=== PATIENT | female | born 1990 | race Caucasian/White ===

== ENCOUNTER 2018-03-06 21:16 | Emergency (ER) | payer MEDICAID, SELFPAY ==
[2018-03-06 21:20] VITALS: BP 107/75; PULSE 107; RESP 18; TEMP 36.4; O2SAT 99
--- NOTE | 2018-03-06 21:33 | DI.RPTCT_ITS ---
SYMPTOM/DIAGNOSIS: PLEURITIC CHEST PAIN, UPPER ABDOMINAL PAIN CHEST FOR PE: CT angiography was performed with multi slice acquisition and multi planar and 3D reconstruction. The study was carried out with intravenous injection of 100 cc Omnipaque 350. Motion artifact limits the study and the results are insufficient for definitive exclusion of pulmonary emboli beyond the first and second pulmonary arterial branches. There is no evidence of a saddle embolus. There is no evidence of central lobar occlusive emboli. The mental emboli could not be entirely excluded. The aortopulmonary arteries are of normal caliber. There is no evidence of an aortic aneurysm or dissection. Heterogenous attenuation of the pulmonary parenchyma is consistent with air trapping from underlying small airway disease. There is no evidence of focal pulmonary consolidation. There is no evidence of pulmonary parenchymal inflammatory change. There is no evidence of a pulmonary mass. There is no evidence of a pneumothorax or pleural effusion. The cardiac structures are normal. The mediastinum is intact. No acute bony abnormality is seen. There are no soft tissue masses or fluid collections. Bilateral soft tissue nipple piercing is evident. There is mild hilar adenopathy. There is mild right hilar adenopathy present. SUMMARY: Heterogeneous attenuation of the pulmonary parenchyma consistent with air trapping for underlying small vessel disease is noted. There is mild left hilar adenopathy. Motion artifact limits the study resulting in insufficient definitive exclusion of pulmonary embolic disease beyond the 1st and 2nd aortopulmonary arteries. No saddle embolus is identified. There is no evidence of central lobar occlusive emboli. CT ABDOMEN AND PELVIS: The study was carried out with intravenous administration of 100 cc Omnipaque 350. There is no evidence of focal pulmonary consolidation in the lung bases. There is no evidence of a pneumothorax or pleural effusion. The cardiac structures are intact. There is diffuse decrease in hepatic parenchymal density consistent with fatty infiltration. The liver is enlarged with a liver span of up to 20 cm. The spleen is also enlarged. There is no evidence of a focal liver lesion. There is no evidence of intrahepatic or extrahepatic biliary ductal dilatation. The gallbladder is contracted but is otherwise unremarkable. There is no cholelithiasis or wall thickening or pericholecystic fluid to suggest cholecystitis. The pancreas is normal. Spleen is enlarged. The adrenal glands are normal. The kidneys are normal. There is no evidence of bowel obstruction. There is no evidence of diverticulitis A normal appearing appendix is identified. The bladder is normal. The reproductive organs as visualized are normal. A left ovarian cyst measures 1.9 cm. There is a right ovarian cyst measuring 1.6 cm There is no evidence of free air or free fluid in the intraperitoneal space. There is no evidence of a soft tissue mass or fluid collection. No acute bony abnormalities seen. The soft tissues are unremarkable. There is no evidence of an aortic aneurysm. There is no evidence of lymphadenopathy. SUMMARY: No acute abnormality is noted in the abdomen and pelvis. An enlarged fatty liver is demonstrated.
--- NOTE | 2018-03-06 21:34 | ED.GENADUL ---
Disposition Clinical Impression: Abdominal pain, Chest pain Disposition: HOME Condition: Stable Instructions: Abdominal Pain (ED), Chest Pain (ED) Additional Instructions: your lab work and imaging did not show any life threatening cause for your pain. You were found to have high blood sugar as you haven't been taking medications that you are supposed to be taking. IT is important you take your prescribed medications follow up with your primary care provider within a week. Medical Decision Making - Lab Data Results reviewed for labs ordered during visit: Yes - EKG Data -: EKG Interpreted by Me EKG shows normal: sinus rhythm, axis, intervals, QRS complexes, ST-T waves Rate: normal - Radiology Data Radiology results: report reviewed, image reviewed - Medical Decision Making Pt here with pleuritic chest and back pain and upper abdominal pain. Could be fibromyalgia but feel life threatening processes should be evluated for. She is wells moderate given PE could be number one diagnosis, will obtain CTA and also obtain ct abd/pelvis to eval for sbo, cholecystitis among other pathology. She has no pain with exertion, no n/v, no diaphoresis and heart score is 1 based on risk factors, will send troponin and obtain ecg, if negative do not feel further workup indicated. labs thus far unremarkable, awaiting chemistries and imaging. imaging abd/pelvis shows n oacute pathology and cta chest also shows no acute pathology, though can't exclude distal PE due to motion artifact. Her HR is now in the 80's without hypoxia so less likely PE. I feel she is stable for outpatient management. I suspect either muscle strain vs fibromyalgia. She was educated on importance of controlling her DM, her glucose here is 487 and she hasn't been using her insulin for 2 days, educated on risks of not controlling it including and disability that would be permanent. She declined referral to catholic priest - Differential Diagnosis PE, pancreatitis, cholecystitis, hepatitis, pna, ptx History of Present Illness - General Chief complaint: Chest/Rib Stated complaint: UNKNOWN Time Seen by Provider: 03/06/18 21:18 Source: patient Mode of arrival: ambulatory Limitations: no limitations - History of Present Illness Initial comments: 28 yo female with hx of DM, fibromyalgia, who comes in with cc of pleuritic right sided chest pain and back pain and upper abdominal pain starting this morning. Denies having this pain in the past. Denies fevers or cough. she has upper abdominal pain in luq and ruq with no lower abdominal pain and negative allen's sign MD Complaint: chest and abd pain Onset/Timin -: days(s) Location: chest, abdomen Radiation: non-radiation Severity scale (1-10): 7 Quality: stabbing Consistency: constant Improves with: none Worsens with: other (deep breaths) Associated Symptoms: denies other symptoms Treatments Prior to Arrival: none - Related Data Metformin HCl [Glucophage Xr] 750 mg PO BID tab-cap 02/04/15 Ondansetron HCl 4 mg PO TID PRN 02/04/15 Insulin Glargine,Hum.rec.anlog [Lantus Solostar] 50 unit SC HS 08/23/15 Lidocaine/Prilocaine [Emla Cream] 30 gm TP Q4H PRN #6 tube 11/02/15 Cetirizine HCl [Zyrtec] 10 mg PO DAILY 01/23/18 Insulin Detemir [Levemir] 1 unit SC DAILY 01/23/18 TraZODone [Desyrel] 50 mg PO DAILY 01/23/18 DULoxetine [Cymbalta] 60 mg PO DAILY 03/06/18 Allergies Allergy/AdvReac Type Severity Reaction Status Date / Time latex Allergy Mild Skin Rash Unverified 03/06/18 21:24 Penicillins Allergy Unknown as child Unverified 03/06/18 21:24 clindamycin AdvReac nausea/itch Unverified 03/06/18 21:24 ing Review of Systems Constitutional: denies: chills, fever Respiratory: shortness of breath Cardiovascular: chest pain Gastrointestinal: abdominal pain. denies: nausea, vomiting Musculoskeletal: back pain Skin: denies: rash Neurological: denies: headache Comment: All other systems reviewed and negative Past Medical History - Past Medical History Medical history: diabetes Fibromyalgia Surgical history: bilateral tubal ligation, other (LEEP, bilateral eye surgery) - Social History Smoking status: current everyday smoker Alcohol use: occasionally Drug use: none General Exam - General Limitations: no limitations General appearance: alert, in no apparent distress - Head Head exam: Present: atraumatic - Eye Eye exam: Present: normal apperance - ENT ENT exam: Present: mucous membranes moist - Neck Neck exam: Present: normal inspection - Respiratory Respiratory exam: Present: normal lung sounds bilaterally. Absent: respiratory distress - Cardiovascular Cardiovascular Exam: Present: normal rhythm, tachycardia, normal heart sounds - GI/Abdominal GI/Abdominal exam: Present: soft, tenderness. Absent: distended, rebound - Extremities Exam Extremities exam: Present: normal inspection. Absent: pedal edema, calf tenderness - Back Exam Back exam: Absent: CVA tenderness (R), CVA tenderness (L) - Neurological Exam Neurological exam: Present: alert, oriented X3, normal gait - Psychiatric Psychiatric exam: Present: anxious - Skin Skin exam: Present: warm Course Vital Signs - 24 hr 03/06/ 21:20 Temperature 97.5 F L Pulse 107 H Respiratory 18 Rate Blood Pressure 107/75 Pulse Oximetry 99
[2018-03-06] MEDS: Normal Saline 1,000 ML 1000 ML IV (21:49)
[2018-03-06] MEDS: Ketorolac 30 MG/ML VIAL 15 MG IVP (21:49)
[2018-03-06 21:50] LABS: Abs Immature Grans 0.01 k/cumm (0.0-0.09); Absolute Basophil Count 0.02 k/cumm (0.0-0.2); Absolute Eosinophil Count 0.18 k/cumm (0.0-0.7); Absolute Lymphocyte Count 2.95 k/cumm (1.2-3.4); Absolute Monocyte Count 0.34 k/cumm (0.11-0.7); Absolute Neutrophil Count 5.53 k/cumm (1.2-6.7); Basophils % 0.2; HCT 41.2 % (36.0-46.0); HGB 15.2 g/dL (12.0-15.5); Immature Grans % 0.1; Lymphocytes % 32.7; Mean Corp. HGB Concentration 36.9 g/dL (32.0-36.0); Mean Corpuscular Hemoglobin 29.5 pg (27.0-33.0); Mean Corpuscular Volume 79.8 fL (80-95); Mean Platelet Volume 9.6 fL (8.0-11.0); Monocytes % 3.8; Neutrophils % 61.2; Platelet Count 165 x1000/uL (130-400); RBC 5.16 m/cumm (4.00-5.20); RBC Distribution Width 12.4 % (11.7-14.6); White Blood Cell Count 9.03 k/cumm (4.4-10.8)
[2018-03-06 22:09] LABS: ALT 23 U/L (12-78); Albumin 3.6 g/dL (3.4-5.0); Alkaline Phosphatase 77 U/L (46-116); BUN 16 mg/dL (7-18); Bilirubin, Total 0.2 mg/dL (0.2-1.0); CREATININE 0.94 mg/dL (0.55-1.02); Calcium 8.9 mg/dL (8.5-10.1); Chloride 95 mmol/L (98-107); Glucose 487 mg/dL (70-100); Lipase 163 U/L (73-393); Magnesium 1.9 mg/dL (1.8-2.4); Potassium 4.2 mmol/L (3.5-5.1); Sodium 131 mmol/L (136-145); Total Protein 7.2 g/dL (6.4-8.2)
[2018-03-06 22:12] LABS: Troponin I < 0.02 ng/mL (0.00-0.06)
[2018-03-06] MEDS: Omnipaque 350 MG/ML 100 ML BTL IJ (22:16)
[2018-03-06 22:25] LABS: AST < 5 U/L (15-37)
--- NOTE | 2018-03-06 22:47 | DI.VRAD_ITS ---
EXAM: CT Abdomen and Pelvis With Intravenous Contrast CLINICAL HISTORY: 28 years old, female; Pain; Abdominal pain; Other: Upper; Chest pain; Other: Pleuritic TECHNIQUE: Axial computed tomography images of the abdomen and pelvis with intravenous contrast. All CT scans at this facility use at least one of these dose optimization techniques: automated exposure control; mA and/or kV adjustment per patient size (includes targeted exams where dose is matched to clinical indication); or iterative reconstruction. Coronal and sagittal reformatted images were created and reviewed. CONTRAST: 100 mL of Omnipaque 350 administered intravenously. COMPARISON: No relevant prior studies available. FINDINGS: Lung bases: Please see CT of the chest and lungs. The lungs are normal. There is no evidence of focal pulmonary consolidation. Pleural space: There is no evidence of pneumothorax. There are no pleural effusions present. Heart: The cardiac structures are normal. ABDOMEN: Liver: There is a diffuse decrease in hepatic parenchymal density, consistent with mild fatty infiltration. The liver is enlarged with a liver span of approximately 20 cm. The spleen is enlarged There are no focal liver lesions present. There is no evidence of intrahepatic or extrahepatic biliary ductal dilation. Gallbladder and bile ducts: The gallbladder is contracted but otherwise normal. There is no cholelitiasis, wall thickening or pericholecystic fluid to suggest cholecystitis. Pancreas: The pancreas is normal. Spleen: See above. Adrenals: The adrenal glands are normal. Kidneys and ureters: The kidneys are normal. Stomach and bowel: There is no evidence of intestinal obstruction. No diverticulitis is present. PELVIS: Appendix: A normal appendix is identified. There is no evidence of distention or periappendiceal inflammation to suggest appendicitis. Bladder: The bladder is normal. Reproductive: The uterus is normal. There is a left ovarian cyst measuring 19 mm. There is a right ovarian cyst measuring 16 mm. No followup necessary. The ovaries are otherwise normal. ABDOMEN and PELVIS: Intraperitoneal space: There is no free intraperitoneal air. There is no evidence of free intraperitoneal or pelvic fluid. There are no soft tissue masses or fluid collections. Bones/joints: The skeletal structures show no evidence of fracture or other acute processes. Soft tissues: The extraperitoneal soft tissues show no evidence of fluid collections, masses or inflammation. Vasculature: The aorta is normal without evidence of significant atherosclerosis or aneurysmal disease. The peripheral arterial vascular system visualized is unremarkable. The portal venous system visualized is unremarkable. The venous system visualized is unremarkable. Lymph nodes: There is no evidence of lymphadenopathy. IMPRESSION: No acute process identified within the abdomen. Hepatic steatosis with hepatosplenomegaly EXAM: CT Angiography Chest With Intravenous Contrast CLINICAL HISTORY: 28 years old, female; Pain; Abdominal pain; Other: Upper; Chest pain; Other: Pleuritic TECHNIQUE: Axial computed tomographic angiography images of the chest with intravenous contrast using pulmonary embolism protocol. All CT scans at this facility use at least one of these dose optimization techniques: automated exposure control; mA and/or kV adjustment per patient size (includes targeted exams where dose is matched to clinical indication); or iterative reconstruction. MIP reconstructed images were created and reviewed. Coronal and sagittal reformatted images were created and reviewed. CONTRAST: 100 mL of Omnipaque 350 administered intravenously. 100 mL of Omnipaque 350 administered intravenously. COMPARISON: US - PELVIS TRANSVAG 2012-07-15 17:39 FINDINGS: Artifacts: Motion artifact limits evaluation the study. Pulmonary arteries: Motion artifact limits this study and the results are insufficient for definitive exclusion of peripheral pulmonary emboli beyond the first and second order pulmonary arterial branches. No central or saddle emboli noted. No evidence of central lobar occlusive emboli. Segmental emboli cannot be ruled out. The pulmonary arteries are normal in caliber. Aorta: The aorta great vessels are normal without evidence of aneurysmal dilatation, dissection or occlusive disease. Lungs: There is heterogeneous attenuation of the pulmonary parenchyma, consistent with air trapping from underlying small airways disease. There is no evidence of focal pulmonary consolidation. No evidence of pulmonary parenchymal inflammatory changes. There is no evidence of pulmonary masses. Pleural space: There is no evidence of pneumothorax. There are no pleural effusions present. Heart: The cardiac structures are normal. Mediastinum: The mediastinal structures are normal. Bones/joints: The spine, sternum, ribs, and pectoral girdles show no evidence of acute abnormality. Soft tissues: Bilateral soft tissue nipple piercings present. There are no soft tissue masses or fluid collections. Lymph nodes: There is mild left hilar adenopathy. There is mild right hilar adenopathy present. Other findings: Please see CT of the abdomen. IMPRESSION: 1. There is heterogeneous attenuation of the pulmonary parenchyma, consistent with air trapping from underlying small airways disease. 2. There is mild left hilar adenopathy. There is mild right hilar adenopathy present. 3. Motion artifact limits this study and the results are insufficient for definitive exclusion of peripheral pulmonary emboli beyond the first and second order pulmonary arterial branches. No central or saddle emboli noted. No evidence of central lobar occlusive emboli. Segmental emboli cannot be ruled out. Dictated and Authenticated by: Hugh Griffin MD. Ordering:BELL ALONSO MD
[2018-03-06 23:18] LABS: INR 0.9 (1.0-3.5); PTT Activated 21.3 sec (21.0-31.4); Prothrombin Time 8.8 sec (9.3-10.8)
== END 2018-03-06 23:00 | disposition home or self-care (01) ==
PROVIDERS: Emergency Provider Emergency Medicine; PCP Family Medicine
DX: R10.12 Left upper quadrant pain (principal); R07.81 Pleurodynia; E11.65 Type 2 diabetes mellitus with hyperglycemia; T38.3X6A Underdosing of insulin and oral hypoglycemic [antidiabetic] drugs, initial encounter; Z79.4 Long term (current) use of insulin
CPT/HCPCS: 36415; 71275; 74177; 80053; 83690; 93005; 96361; 96374; 99285; 83735; 84484; 85025; 85610; 85730; 93010; 99284; J1885; J3490

== ENCOUNTER 2018-05-03 13:33 | Outpatient (REF) | payer MEDICAID, SELFPAY ==
--- NOTE | 2018-05-03 10:45 | PAPFT_PTH ---
PATIENT: Tatiana Meek LOC: [facility] U#:[id number] AGE/SX: 28/F ROOM: RE05/03/[address]: Kerry Vo : 1990 BED: DIS: 05/03/2018 SPEC #: [id number] RECD: 05/06/18 13:15 STATUS: NICOLE REJenni #: [id number] JAMEEL: 05/03/18 10:[address]: Kerry Vo DEPT: [facility] Cytology RECD BY: Rashmi Nation Tissues: 1 - CX/ENDOCX FOR PAP SMEARS Procedures: PAP THIN PREP/[facility] Screening Comments: [id number] (CHLAMYDIA/GC)
[2018-05-07 12:40] LABS: Chlamydia Result Negative; GC Result Negative; Specimen Description SEE COMMENTS
== END 2018-05-03 13:53 ==
LOC: NCHCN 13:33
PROVIDERS: PCP Family Medicine; Visit Provider Family Medicine
DX: Z11.3 Encounter for screening for infections with a predominantly sexual mode of transmission (principal); Z12.4 Encounter for screening for malignant neoplasm of cervix; Z00.00 Encounter for general adult medical examination without abnormal findings
CPT/HCPCS: 87491; 87591; 88142

== ENCOUNTER 2018-05-26 11:16 | Emergency (ER) | payer MEDICAID, SELFPAY ==
[2018-05-26 11:32] VITALS: BP 128/81; PULSE 106; RESP 16; TEMP 36.7; O2SAT 98
--- NOTE | 2018-05-26 11:59 | DI.RAD_ITS ---
SYMPTOMS/DIAGNOSIS: COUGH AND WHEEZING FOR 5 WEEKS CHEST X-RAY, FRONTAL AND LATERAL VIEWS: Comparison is 07/10/12. The heart is normal in size. The lungs are clear. The mediastinal structures and pleura appear intact. IMPRESSION: Normal chest.
--- NOTE | 2018-05-26 12:00 | W.ED.GENAD ---
Discharge Plan Disposition Patient Disposition: HOME Condition: Good Discharge Details Chief Complaint: RespSymp Clinical Impression: URI (upper respiratory infection) Primary Care Provider: Kerry Vo ED Provider: Sonny Guaman Home Meds and New Rx's Prescriptions: New prednisone 20 mg tablet 40 mg PO DAILY Qty: 14 RF: 0 No Action ondansetron HCl 4 MG tablet 4 mg PO TID PRNRF: 0 metformin [Glucophage XR] 500 MG tablet extended release 24 hr 750 mg PO BID RF: 0 insulin glargine [Lantus Solostar U-100 Insulin] 100 UNIT/1 ML insulin pen 50 unit Sub-Q HS RF: 0 lidocaine-prilocaine [Emla] 30 GM cream 30 gm Topical Q4H PRN Qty: 6 RF: 5 trazodone 50 MG tablet 50 mg PO DAILY RF: 0 insulin detemir U-100 [Levemir U-100 Insulin] 100 UNIT/ML solution 1 unit Sub-Q DAILY RF: 0 cetirizine [Zyrtec] 10 MG capsule 10 mg PO DAILY RF: 0 duloxetine [Cymbalta] 60 MG capsule,delayed release(DR/EC) 60 mg PO DAILY RF: 0 Discharge Instructions Instructions: Upper Respiratory Infection (ED) Stand Alone Forms: Work Release Referrals: Kerry Vo MD [Primary Care Provider] - Return if symptoms worsen Discharge Data Discharge Date/Time-TO BE ENTERED AT DEPARTURE: 05/26/18 13:09 Medical Decision Making Plan to evaluate with chest x-ray. Apprised of x-ray impression. Discussed virus versus bacterial infection. At this point she looks well and exam is basically normal. Antibiotics are not warranted at this time. I will prescribe prednisone for the wheezing and advised to take time off from work to rest. Work note provided. Advised to f/u with pcp or return to ED if symptoms worsen. Imaging Data Radiologic Study: Imaging: X-Ray My impression: No acute pathology Radiologist's impression: V-Rad: No acute findings. HPI General Mode of arrival: ambulatory. Date/Time Provider Initiated Documentation: 05/26/18 11:59. Limitations to Documentation: no limitations. Information obtained by: patient. History of Present Illness 28 year old F presents to the emergency department with the chief complaint of URI causing Sinusitis, HPI Narrative: 28 y/o female here with c/o productive cough, wheezing, sore throat, chills, MCALLISTER and sinus pressure for five weeks. The symptoms have waxed and waned for five weeks. She does not currently does not c/o sore throat or productive cough. Cough is now dry. She smokes. All of her family is sick with similar illness. Last night her BF was diagnosed with PNA. She tells the nurse she has not taken her insulin do to financial reasons. Related Data Home Medications Medication Instructions Recorded Confirmed metformin [Glucophage XR] 750 mg PO BID tab-cap 02/04/15 05/26/18 ondansetron HCl 4 mg PO TID PRN 02/04/15 05/26/18 insulin glargine [Lantus Solostar 50 unit SUB-Q HS 08/23/15 05/26/18 U-100 Insulin] lidocaine-prilocaine [Emla] 30 gm TOPICAL Q4H PRN #6 tube 11/02/15 cetirizine [Zyrtec] 10 mg PO DAILY 01/23/18 05/26/18 insulin detemir U-100 [Levemir 1 unit SUB-Q DAILY 01/23/18 05/26/18 U-100 Insulin] trazodone 50 mg PO DAILY 01/23/18 05/26/18 duloxetine [Cymbalta] 60 mg PO DAILY 03/06/18 05/26/18 prednisone 40 mg PO DAILY #14 tab 05/26/18 Previous Rx's Medication Instructions Recorded prednisone 40 mg PO DAILY #14 tab 05/26/18 Allergies Allergy/AdvReac Type Severity Reaction Status Date / Time latex Allergy Mild Skin Rash Unverified 05/26/18 11:37 Penicillins Allergy Unknown as child Unverified 05/26/18 11:37 clindamycin AdvReac nausea/itch Unverified 05/26/18 11:37 ing General Stated Complaint: RespSymp GHULAM: 3 Review of Systems Constitutional Reports chills and Reports headache(s) Eyes Reports itchy eyes ENT Reports otalgia, Reports headache(s), Reports nasal discharge, Reports sinus pressure and Reports sore throat Cardiovascular Reports system reviewed and no additional complaints, except as docu Respiratory Reports chest congestion and Reports wheezing Gastrointestinal Reports system reviewed and no additional complaints, except as docu Genitourinary Reports system reviewed and no additional complaints, except as docu Integumentary/Breasts Reports system reviewed and no additional complaints, except as docu Neurologic Reports headache(s) Allergic/Immunologic Reports itchy eyes and Reports wheezing [facility] Social History Smoking/Tobacco Use Status: Current every day Exam Const General: cooperative, no acute distress, well developed and well groomed Nutritional Appearance: average body habitus Orientation: alert and oriented x3 HENMT Head: normal to inspection Ears: hearing grossly normal bilaterally, external ears normal and TM's normal bilaterally General nose exam: external nose normal and nasal mucous membranes and turbinates normal Face and sinus: normal facial exam Mouth: oral mucosae normal, lip normal, tongue normal, oropharynx normal and moist mucous membranes Teeth and gingiva: dentition normal Throat: posterior oropharynx normal Eyes General: appearance normal, both eyes and all related structures Neck Neck: normal visual inspection, full ROM and no lymphadenopathy Resp Effort & Inspection: normal respiratory effort and no cough Auscultation: clear to auscultation bilaterally Cardio Rate: regular rate Rhythm: regular rhythm Heart Sounds: S1 normal and S2 normal Skin General skin exam: no rashes or lesions noted Neuro General: alert, awake and oriented x3 Gait: normal gait Extrem General: normal to inspection, full ROM and normal capillary refill Psych Appearance: grossly normal and well kempt Mood: congruent mood Affect: normal affect Attitude: cooperative Thought Process: normal Thought Content: normal Course Vital Signs Temperature 36.7 C 05/26/18 11:32 Pulse 106 H 05/26/18 11:32 Respiratory Rate 16 05/26/18 11:32 Blood Pressure 128/81 05/26/18 11:32 Pulse Oximetry 98 05/26/18 11:32 Temperature 36.7 C 05/26/18 11:32 Temperature Source Temporal Artery Scan 05/26/18 11:32 Pulse 106 H 05/26/18 11:32 Respiratory Rate 16 05/26/18 11:32 Respiratory Effort Non-Labored 05/26/18 11:44 Respiratory Depth Normal 05/26/18 11:44 Blood Pressure 128/81 05/26/18 11:32 Blood Pressure Position Sitting 05/26/18 11:32 Pulse Oximetry 98 05/26/18 11:32 Oxygen Delivery Method Room Air 05/26/18 11:32 Oxygen Flow Rate 0 05/26/18 11:32 Pain Level 7 05/26/18 11:32
--- NOTE | 2018-05-26 12:46 | DI.VRAD_ITS ---
EXAM: XR Chest, 2 Views EXAM DATE/TIME: 05/26/2018 12:00 PM CLINICAL HISTORY: 28 years old, female; Signs and symptoms; Cough and wheezing; Patient HX: Coughing and wheezing for 5 weeks TECHNIQUE: XR of the chest, 2 views. COMPARISON: CR ABD FLAT UPRIGHT PA CHEST 07/10/2012 6:02 PM FINDINGS: Lungs: Unremarkable. No consolidation. Pleural space: Unremarkable. No pleural effusion. No pneumothorax. Heart/Mediastinum: Unremarkable. No cardiomegaly. Bones/joints: Unremarkable. IMPRESSION: No acute findings. Dictated and Authenticated by: Christy Cortés MD. Ordering:ZOILA ALONSO MD
== END 2018-05-26 13:09 | disposition home or self-care (01) ==
LOC: ER 13:11
PROVIDERS: Emergency Provider Nurse Practitioner Family; PCP Family Medicine
DX: J06.9 Acute upper respiratory infection, unspecified (principal); F17.210 Nicotine dependence, cigarettes, uncomplicated
CPT/HCPCS: 99283; 71046

== ENCOUNTER 2018-07-26 03:10 | Emergency (ER) | payer MEDICAID, SELFPAY ==
[2018-07-26 03:14] VITALS: BP 134/87; PULSE 114; RESP 20; TEMP 36.4; O2SAT 97
[2018-07-26 03:19] VITALS: RESP 18
--- NOTE | 2018-07-26 03:29 | W.ED.GENAD ---
Discharge Plan Disposition Patient Disposition: AGAINST MEDICAL ADVICE Condition: Stable Discharge Details Chief Complaint: GenMedical Clinical Impression: Rhinosinusitis, Uncontrolled diabetes mellitus Primary Care Provider: Kerry Vo ED Provider: Rohit Loza [place] Meds and New Rx's Prescriptions: New Flonase Sensimist 27.5 mcg/actuation spray,suspension 2 spray TREMAYNE DAILY Qty: 5.9 RF: 0 Discharge Instructions Additional Instructions: You really should consider treating your diabetes and taking medications to control your sugars. It is very high this morning. You did not want treatment for the diabetes and needed to leave in order to get your daughter to an appointment. Please make appointment to follow up with your doctor and discuss other treatment options. We will give you a prescription for steroid nose drops to see if this will help with your sinus pain/pressure that you came in for. Return to ED if you have fever, vomiting or want to evaluate/treat you elevated sugar. Referrals: Kerry Vo MD [Primary Care Provider] - Medical Decision Making Patient presents stating she only wants something to help with her nasal/facial pain. She has discontinued all of her other medications. She has not taken anything for diabetes for over a month. Blood sugar here is greater than 500. She declines workup or treatment for this. She does not want Tylenol for pain. She does not like taking the medications. She states insulin demarco and that none of the fibromyalgia medications help. She reports that she does have an appointment coming up with primary care. She understands the risk of not treating diabetes appropriately. She states that is not why she came in [facility]. She will not take medications for her diabetes. She will take the steroid nose drops to see if that helps. She does have capacity and the ability to refuse treatment. She is signed out AMA. HPI General Mode of arrival: ambulatory. Date/Time Provider Initiated Documentation: 07/26/18 03:24. Limitations to Documentation: no limitations. Information obtained by: patient. HPI Narrative: Patient presents to ED with complaints of facial pain and nasal congestion with postnasal drip. She reports that she has had this for some time now. On further questioning she states though not that long of a time. She was seen here at the end of April with URI symptoms and placed on prednisone. She never followed up with primary care. In fact she reported to nursing that she has actually stopped taking any medications. She reports having fibromyalgia and pain all over. She reports having occasional bloody discharge from her nose. She has facial pain. She denies having cough or fever. She has no difficulty breathing. She has not taken Tylenol or Motrin. She has difficulty sleeping because of the nasal congestion. Related Data Home Medications Medication Instructions Recorded Confirmed fluticasone furoate [Flonase 2 spray TREMAYNE DAILY #5.9 ml 07/26/18 Sensimist] Previous Rx's Medication Instructions Recorded fluticasone furoate [Flonase 2 spray TREMAYNE DAILY #5.9 ml 07/26/18 Sensimist] Allergies Allergy/AdvReac Type Severity Reaction Status Date / Time latex Allergy Mild Skin Rash Unverified 07/26/18 03:18 Penicillins Allergy Unknown as child Unverified 07/26/18 03:18 clindamycin AdvReac nausea/itch Unverified 07/26/18 03:18 ing General Stated Complaint: GenMedical GHULAM: 4 Review of Systems Constitutional Denies chills, Denies fever(s) and Denies headache(s) ENT Denies otalgia, Reports facial pain, Denies headache(s), Reports nasal congestion, Reports nasal discharge, Reports sinus pain, Reports sinus pressure and Denies sore throat Cardiovascular Denies chest pain, Denies edema and Denies dyspnea Respiratory Denies cough and Denies dyspnea Musculoskeletal Reports back pain, Reports myalgias and Denies numbness Neurologic Denies confusion, Denies headache(s), Denies focal weakness and Denies numbness Psychiatric Denies confusion [facility] Medical History Diabetes mellitus (Chronic) Fibromyalgia (Chronic) Surgical History S/P tubal ligation (Inactive) Social History Smoking/Tobacco Use Status: Current every day Exam Const General: cooperative and comfortable Orientation: alert and oriented x3 HENMT Head: normocephalic and atraumatic Ears: external ears normal and TM's normal bilaterally General nose exam: external nose normal and no nasal discharge Face and sinus: normal facial exam, sinuses nontender and no erythema Mouth: oropharynx normal Throat: posterior oropharynx abnormal Eyes Conjunctivae: conjunctivae normal Pupils: PERRL EOM: EOM intact bilaterally Neck Neck: full ROM, trachea midline and supple Lymphatic: no lymphadenopathy noted Resp Effort & Inspection: normal respiratory effort Auscultation: clear to auscultation bilaterally Cardio Rate: regular rate Rhythm: regular rhythm Heart Sounds: S1 normal and S2 normal Neuro General: alert, oriented x3, no focal motor deficits and CN's II-XI intact bilaterally Course Vital Signs Temperature 97.5 F L 07/26/18 03:14 Pulse 114 H 07/26/18 03:14 Respiratory Rate 20 07/26/18 03:14 Blood Pressure 134/87 07/26/18 03:14 Pulse Oximetry 97 07/26/18 03:14 Temperature 97.5 F L 07/26/18 03:14 Temperature Source Temporal Artery Scan 07/26/18 03:14 Pulse 114 H 07/26/18 03:14 Respiratory Rate 18 07/26/18 03:19 Respiratory Effort Non-Labored 07/26/18 03:14 Blood Pressure 134/87 07/26/18 03:14 Blood Pressure Position Sitting 07/26/18 03:14 Pulse Oximetry 97 07/26/18 03:14 Pain Level 9 07/26/18 03:14
--- NOTE | 2018-07-26 03:38 | ED.GENADUL_ITS ---
Discharge Plan Disposition Patient Disposition: AGAINST MEDICAL ADVICE Condition: Stable Discharge Details Chief Complaint: GenMedical Clinical Impression: Rhinosinusitis, Uncontrolled diabetes mellitus Primary Care Provider: Kerry Vo ED Provider: Rohit Loza [place] Meds and New Rx's Prescriptions: New Flonase Sensimist 27.5 mcg/actuation spray,suspension 2 spray TREMAYNE DAILY Qty: 5.9 RF: 0 Discharge Instructions Additional Instructions: You really should consider treating your diabetes and taking medications to control your sugars. It is very high this morning. You did not want treatment for the diabetes and needed to leave in order to get your daughter to an appointment. Please make appointment to follow up with your doctor and discuss other treatment options. We will give you a prescription for steroid nose drops to see if this will help with your sinus pain/pressure that you came in for. Return to ED if you have fever, vomiting or want to evaluate/treat you elevated sugar. Referrals: Kerry Vo MD [Primary Care Provider] - Medical Decision Making Patient presents stating she only wants something to help with her nasal/facial pain. She has discontinued all of her other medications. She has not taken anything for diabetes for over a month. Blood sugar here is greater than 500. She declines workup or treatment for this. She does not want Tylenol for pain. She does not like taking the medications. She states insulin demarco and that none of the fibromyalgia medications help. She reports that she does have an appointment coming up with primary care. She understands the risk of not treating diabetes appropriately. She states that is not why she came in [facility]. She will not take medications for her diabetes. She will take the steroid nose drops to see if that helps. She does have capacity and the ability to refuse treatment. She is signed out AMA. HPI General Mode of arrival: ambulatory . Date/Time Provider Initiated Documentation: 07/26/18 03:24 . Limitations to Documentation: no limitations . Information obtained by: patient . HPI Narrative: Patient presents to ED with complaints of facial pain and nasal congestion with postnasal drip. She reports that she has had this for some time now. On further questioning she states though not that long of a time. She was seen here at the end of April with URI symptoms and placed on prednisone. She never followed up with primary care. In fact she reported to nursing that she has actually stopped taking any medications. She reports having fibromyalgia and pain all over. She reports having occasional bloody discharge from her nose. She has facial pain. She denies having cough or fever. She has no difficulty breathing. She has not taken Tylenol or Motrin. She has difficulty sleeping because of the nasal congestion. Related Data Home Medications Medication Instructions Recorded Confirmed fluticasone furoate [Flonase 2 spray TREMAYNE DAILY #5.9 ml 07/26/18 Sensimist] Previous Rx's Medication Instructions Recorded fluticasone furoate [Flonase 2 spray TREMAYNE DAILY #5.9 ml 07/26/18 Sensimist] Allergies Allergy/AdvReac Type Severity Reaction Status Date / Time latex Allergy Mild Skin Rash Unverified 07/26/18 03:18 Penicillins Allergy Unknown as child Unverified 07/26/18 03:18 clindamycin AdvReac nausea/itch Unverified 07/26/18 03:18 ing General Stated Complaint: GenMedical GHULAM: 4 Review of Systems Constitutional Denies chills, Denies fever(s) and Denies headache(s) ENT Denies otalgia, Reports facial pain, Denies headache(s), Reports nasal congestion, Reports nasal discharge, Reports sinus pain, Reports sinus pressure and Denies sore throat Cardiovascular Denies chest pain, Denies edema and Denies dyspnea Respiratory Denies cough and Denies dyspnea Musculoskeletal Reports back pain, Reports myalgias and Denies numbness Neurologic Denies confusion, Denies headache(s), Denies focal weakness and Denies numbness Psychiatric Denies confusion COUNT INCLUDES [facility] Medical History Diabetes mellitus (Chronic) Fibromyalgia (Chronic) Surgical History S/P tubal ligation (Inactive) Social History Smoking/Tobacco Use Status: Current every day Exam Const General: cooperative and comfortable Orientation: alert and oriented x3 HENMT Head: normocephalic and atraumatic Ears: external ears normal and TM's normal bilaterally General nose exam: external nose normal and no nasal discharge Face and sinus: normal facial exam, sinuses nontender and no erythema Mouth: oropharynx normal Throat: posterior oropharynx abnormal Eyes Conjunctivae: conjunctivae normal Pupils: PERRL EOM: EOM intact bilaterally Neck Neck: full ROM, trachea midline and supple Lymphatic: no lymphadenopathy noted Resp Effort & Inspection: normal respiratory effort Auscultation: clear to auscultation bilaterally Cardio Rate: regular rate Rhythm: regular rhythm Heart Sounds: S1 normal and S2 normal Neuro General: alert, oriented x3, no focal motor deficits and CN's II-XI intact bilaterally Course Vital Signs Temperature 97.5 F L 07/26/18 03:14 Pulse 114 H 07/26/18 03:14 Respiratory Rate 20 07/26/18 03:14 Blood Pressure 134/87 07/26/18 03:14 Pulse Oximetry 97 07/26/18 03:14 Temperature 97.5 F L 07/26/18 03:14 Temperature Source Temporal Artery Scan 07/26/18 03:14 Pulse 114 H 07/26/18 03:14 Respiratory Rate 18 07/26/18 03:19 Respiratory Effort Non-Labored 07/26/18 03:14 Blood Pressure 134/87 07/26/18 03:14 Blood Pressure Position Sitting 07/26/18 03:14 Pulse Oximetry 97 07/26/18 03:14 Pain Level 9 07/26/18 03:14
[2018-07-26 04:45] VITALS: BP 134/87; PULSE 114; RESP 18; TEMP 36.4; O2SAT 97
== END 2018-07-26 04:30 | disposition left against medical advice (07) ==
PROVIDERS: Emergency Provider Emergency Medicine; PCP Family Medicine
DX: E11.65 Type 2 diabetes mellitus with hyperglycemia (principal); Z91.14 Patient's other noncompliance with medication regimen; Z53.21 Procedure and treatment not carried out due to patient leaving prior to being seen by health care provider
CPT/HCPCS: 36415; 82962; 99282

== ENCOUNTER 2018-09-02 19:25 | Emergency (ER) | payer MEDICAID, SELFPAY ==
[2018-09-02 20:02] VITALS: BP 122/82; PULSE 104; RESP 16; TEMP 36.3; O2SAT 99
[2018-09-02 20:52] LABS: Abs Immature Grans 0.02 k/cumm (0.0-0.09); Absolute Basophil Count 0.03 k/cumm (0.0-0.2); Absolute Lymphocyte Count 4.17 k/cumm (1.2-3.4); Absolute Monocyte Count 0.39 k/cumm (0.11-0.7); Absolute Neutrophil Count 3.46 k/cumm (1.2-6.7); Basophils % 0.4; Eosinophils % 2.4; HCT 41.1 % (36.0-46.0); Immature Grans % 0.2; Lymphocytes % 50.4; Mean Corpuscular Volume 78.6 fL (80-95); Mean Platelet Volume 9.3 fL (8.0-11.0); Monocytes % 4.7; Neutrophils % 41.9; Platelet Count 182 x1000/uL (130-400); RBC 5.23 m/cumm (4.00-5.20); RBC Distribution Width 12.1 % (11.7-14.6); White Blood Cell Count 8.27 k/cumm (4.4-10.8)
[2018-09-02] MEDS: Normal Saline 1,000 ML 1000 ML IV ×3 (20:52→22:42)
[2018-09-02] MEDS: LORazepam 2 MG/ML VIAL 0.5 MG IVP (21:06)
[2018-09-02 21:16] LABS: HGB 14.8 g/dL (12.0-15.5); Mean Corpuscular Hemoglobin 28.3 pg (27.0-33.0)
[2018-09-02 21:23] LABS: *AMPHETAMINES SCREEN URINE Negative (Negative); *BARBITURATES SCREEN URINE Negative (Negative); *BENZODIAZEPINES SCREEN URINE Negative (Negative); Cannabinoids THC Negative (Negative); Cocaine Screen,Urine Negative (Negative); METHADONE URINE SCREEN Negative (Negative); OPIATES URINE SCREEN Negative (Negative)
[2018-09-02 21:23] LABS: ALT 26 U/L (12-78); AST 6 U/L (15-37); Albumin 3.6 g/dL (3.4-5.0); Alkaline Phosphatase 82 U/L (46-116); Anion Gap 12.2 mmol/L (3-11); BUN 14 mg/dL (7-18); Bilirubin, Total 0.3 mg/dL (0.2-1.0); CO2 24.8 mmol/L (21.0-32.0); CREATININE 0.86 mg/dL (0.55-1.02); Calcium 9.2 mg/dL (8.5-10.1); Chloride 94 mmol/L (98-107); Potassium 4.1 mmol/L (3.5-5.1); Sodium 131 mmol/L (136-145); TSH (W/Ref FT4) 1.71 uIU/mL (0.358-3.74); Total Protein 7.3 g/dL (6.4-8.2)
[2018-09-02 21:24] LABS: Tricyclic Antidepressants Negative (Negative)
[2018-09-02 21:26] LABS: Troponin I < 0.02 ng/mL (0.00-0.06)
[2018-09-02 21:27] LABS: D-Dimer 209 ng/mlFEU (<500)
[2018-09-02 21:31] LABS: Bilirubin Negative (Negative); Blood Negative (Negative); Clarity Clear; Glucose >=1000 mg/dL (Negative); Ketones Negative (Negative); Leukocyte Esterase Negative (Negative); Nitrite Negative (Negative); Specific Gravity <= 1.005 (1.005-1.025); Urobilinogen 0.2 EU/dL (Up TO 0.2); pH 5.5 (5-8)
[2018-09-02 21:35] LABS: Diff Comment RBC Morph Reviewed; RBC Morphology Normal
--- NOTE | 2018-09-02 21:51 | ED.GENADUL_ITS ---
Discharge Plan Disposition Patient Disposition: HOME Condition: Good Discharge Details Chief Complaint: Anxiety Clinical Impression: Anxiety, Acid reflux Primary Care Provider: Kerry Vo ED Provider: Christiano George Home Meds and New Rx's Prescriptions: New omeprazole 40 mg capsule,delayed release(DR/EC) 40 mg PO DAILY Qty: 20 RF: 0 No Action Sugar Balance 1 cap PO TID RF: 0 Discharge Instructions Instructions: Gastroesophageal Reflux Disease (ED), Anxiety (ED) Additional Instructions: Please take your home diabetes medications as prescribed. If you notice any worsening of your symptoms, or any new symptoms such as vomiting, diarrhea, fever, chills, shortness of breath, chest pain, numbness, weakness, or fainting , please return immediately to the emergency department for reevaluation. Please follow up with your primary care provider as soon as possible for reassessment and reevaluation. As always, it was a pleasure participating in your medical care today. Referrals: Kerry Vo MD [Primary Care Provider] - Medical Decision Making This is a 28-year-old female with a past medical history of diabetes mellitus type 2, anxiety, fibromyalgia, who presents today for anxiety and chest pain. Patient had a severe panic attack 1 week ago secondary to multiple social stressors. These attacks have come on consistently over the past week as the stressors have come back secondary to [employer] and her work. Throughout all of this she has had mild persistent central chest pain which she describes as a burning sensation that radiates up towards her throat. She does have some anterior reproducible chest wall pain. Patient does state that she feels notably anxious in general. Physical exam shows no other significant abnormalities. She has no risk factors for pulmonary embolism. Because of her signs and symptoms do not we did perform a cardiac workup to evaluate for any acute process, including PE with a d-dimer. Laboratory workup is returned and is benign, no white count, no bandemia, no anemia, negative d-dimer, normal wild ctrolytes, normal renal function. Notably elevated glucose, secondary to patient noncompliance. No significant anion gap, with no signs or symptoms of abdominal tenderness, vomiting, or abdominal tenderness in general. Urinalysis is negative for any acute infection, and drug screen is been negative. TSH is also normal. X-ray shows no acute process. With a benign workup, no significant abnormalities I do I denies and symptoms are most likely consistent with a combination of mild anxiety and mild heartburn and reflux. We have given the patient ibuprofen, Tylenol, and GI cocktail. Patient was given Ativan here in the ER and her heart rate normalized, and she continues to have reassuring vital signs and she does feel less anxious patient has had improvement of her symptoms. I feel she can be safely discharged home with close follow-up with her primary care provider on an outpatient basis. I feel her signs and symptoms are clinically inconsistent with massive PE, ACS, aortic dissection, severe pneumonia, or other significant cardiovascular or pulmonary event. I have extensively reviewed the treatment plan and discharge instructions with the patient and their family. I have addressed all patient concerns at this time. The patient and family was made aware of what symptoms to monitor for that would warrant a return to the emergency department. Discussed the plan with the pa tient and family, they demonstrate verbal understanding and agreement with our assessment and plan at this time. EKG 20: 57 Rate 94, intervals normal, sinus rhythm, no ST elevations or depressions, no significant Q waves, no T wave inversions. No evidence of epsilon wave or delta wave. No hyper acute Q wave. COMPARISON: CR XR CHEST 2V PA LATERAL 05/26/2018 12:15 PM FINDINGS: Lungs: Unremarkable. No consolidation. Pleural space: Unremarkable. No pleural effusion. No pneumothorax. Heart/Mediastinum: Unremarkable. No cardiomegaly. Bones/joints: No acute skeletal abnormality. Soft tissues: Nipple piercings are noted bilaterally. Soft tissues otherwise unremarkable. IMPRESSION: Negative chest. Dictated and Authenticated by: Geremias Li MD. HPI General Date/Time Provider Initiated Documentation: 09/02/18 20:20 . HPI Narrative: This is a 28-year-old female with a past medical history of anxiety, fibromyalgia, who presents today for chest pain and anxiety. It patient states that 1 week ago she had a severe panic attack after multiple notable stressors all coalesced in her life. At that time she felt panicky, palpitations, and severe stress. There are multiple clear stressors that brought on her initial event. Since then the patient states that she has persistently had recurrent episodes of anxiety as the multiple initial events of resurfaced multiple times in her social life Via Facebook and her work. Things that concerns her the most though is her mild persistent chest pain. She denies any pleuritic component. She describes it as a burning achy sensation in her central chest region, that radiates up towards her throat. It does not seem to be aggravated or relieved by food intake. It is slightly worse than though as her panic component increases. She denies any radiation to the arms neck or shoulders. She denies any cough, she denies any significant shortness of breath. She denies any worsening of her symptoms with an exertional component. Denies PE risk factors such as recent long car rides, immobilization, recent surgery, prior history of DVT or PE, family history of PE or DVT, morbid obesity, exogenous estrogen and smoking, hemoptysis, history of cancer. She has no other complaints at the time. Of note the patient does have a history of diabetes and she has not been taking any of her home insulin that was prescribed to her secondary to stating that it makes her feel nauseous. Related Data Home Medications Medication Instructions Recorded Confirmed Sugar Balance 1 cap PO TID 09/02/18 omeprazole 40 mg PO DAILY #20 cap 09/02/18 Previous Rx's Medication Instructions Recorded omeprazole 40 mg PO DAILY #20 cap 09/02/18 Allergies Allergy/AdvReac Type Severity Reaction Status Date / Time latex Allergy Mild Skin Rash Unverified 09/02/18 20:07 Penicillins Allergy Unknown as child Unverified 09/02/18 20:07 clindamycin AdvReac nausea/itch Unverified 09/02/18 20:07 ing General Stated Complaint: Anxiety GHULAM: 4 Review of Systems Review of Systems All systems reviewed & are unremarkable except as noted in HPI and below PFSH Social History Smoking/Tobacco Use Status: Current every day Exam Narrative Exam Narrative: 1.Const: Well-nourished, Well-developed, appearing stated age 2.Eyes: PERRL, no conjunctival injection, and symmetrical lids. 3.ENT: Atraumatic external nose and ears. Moist MM. Neck: Symmetric, trachea midline, No thyromegaly. 4.CVS: +S1/S2, No murmurs or gallops. Peripheral pulses 2+ and equal in all extremities. Brisk capillary refill in all extremities. 5.RESP: Unlabored respiratory effort. Clear to auscultation bilaterally. No wheezes rales or rhonchi. Mild reproducible anterior chest wall pain. No evidence of fracture deformity. 6.GI: Soft, Nontender/Nondistended, No hepatosplenomegaly. No guarding or rebound. 7.MSK: Normocephalic/Atraumatic, Extremities w/o deformity or ttp No cyanosis or clubbing, Normal movement of all extremities 8.Skin: Warm, Dry. No rashes or lesions. 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 Sensation grossly intact, no focal neurologic deficits. 10.Psych: (AAO) x3. Appropriate mood and affect Course Vital Signs Temperature 36.3 C L 09/02/18 20:02 Pulse 104 H 09/02/18 20:02 Respiratory Rate 16 09/02/18 20:02 Blood Pressure 122/82 09/02/18 20:02 Pulse Oximetry 99 09/02/18 20:02 Temperature 36.3 C L 09/02/18 20:02 Temperature Source Skin 09/02/18 20:02 Pulse 104 H 09/02/18 20:02 Respiratory Rate 16 09/02/18 20:02 Respiratory Effort 09/02/18 20:28 Respiratory Depth Normal 09/02/18 20:28 Respiratory Pattern Normal 09/02/18 20:28 Blood Pressure 122/82 09/02/18 20:02 Blood Pressure Position Sitting 09/02/18 20:02 Pulse Oximetry 99 09/02/18 20:02 Oxygen Delivery Method Room Air 09/02/18 20:02 Oxygen Flow Rate 0 09/02/18 20:02 Lab/Test Results Lab/Test Results: Laboratory Tests Range/Units 09/02/18 09/02/18 09/02/18 20:46 20:46 20:46 WBC (4.4-10.8) k/cumm 8.27 RBC (4.00-5.20) m/cumm 5.23 H Hgb (12.0-15.5) g/dL 14.8 Hct (36.0-46.0) % 41.1 MCV (80-95) fL 78.6 L MCH (27.0-33.0) pg 28.3 MCHC (32.0-36.0) g/dL 36.0 RDW (11.7-14.6) % 12.1 Plt Count (130-400) x1000/uL 182 MPV (8.0-11.0) fL 9.3 Immature Gran % 0.2 Neutrophils % 41.9 Lymphocytes % 50.4 Monocytes % 4.7 Eosinophils % 2.4 Basophils % 0.4 Absolute Neutrophils (1.2-6.7) k/cumm 3.46 Absolute Lymphocytes (1.2-3.4) k/cumm 4.17 H Absolute Monocytes (0.11-0.7) k/cumm 0.39 Absolute Eosinophils (0.0-0.7) k/cumm 0.20 Absolute Basophils (0.0-0.2) k/cumm 0.03 Differential Comment Rbc morph reviewed RBC Morphology Normal D-Dimer (<500) ng/mlFEU 209 Sodium (136-145) mmol/L 131 L Potassium (3.5-5.1) mmol/L 4.1 Chloride (98-107) mmol/L 94 L Carbon Dioxide (21.0-32.0) mmol/L 24.8 Anion Gap (3-11) mmol/L 12.2 H BUN (7-18) mg/dL 14 Creatinine (0.55-1.02) mg/dL 0.86 Estimated GFR/1.73 m2 (mL/min/1.73m2) >= 60.00 Glucose (70-100) mg/dL Calcium (8.5-10.1) mg/dL 9.2 Total Bilirubin (0.2-1.0) mg/dL 0.3 AST (15-37) U/L 6 L ALT (12-78) U/L 26 Alkaline Phosphatase (46-116) U/L 82 Troponin I (0.00-0.06) ng/mL < 0.02 Total Protein (6.4-8.2) g/dL 7.3 Albumin (3.4-5.0) g/dL 3.6 TSH (0.358-3.74) uIU/mL 1.71 Urine Color (Yellow) Urine Clarity Urine pH (5-8) Ur Specific [place] (1.005-1.025) Urine Protein (Negative) mg/dL Urine Ketones (Negative) mg/dL Urine Blood (Negative) Urine Nitrite (Negative) Urine Bilirubin (Negative) Urine Urobilinogen (Up TO 0.2) EU/dL Ur Leukocyte Esterase (Negative) Urine Glucose (Negative) mg/dL Urine Opiates Screen (Negative) Urine Methadone Screen (Negative) Ur Barbiturates Screen (Negative) Ur Tricyclics Screen (Negative) Ur Amphetamines Screen (Negative) U Benzodiazepines Scrn (Negative) Urine Cocaine Screen (Negative) Ur THC Screen (Negative) Range/Units 09/02/18 09/02/18 20:50 20:50 WBC (4.4-10.8) k/cumm RBC (4.00-5.20) m/cumm Hgb (12.0-15.5) g/dL Hct (36.0-46.0) % MCV (80-95) fL MCH (27.0-33.0) pg MCHC (32.0-36.0) g/dL RDW (11.7-14.6) % Plt Count (130-400) x1000/uL MPV (8.0-11.0) fL Immature Gran % Neutrophils % Lymphocytes % Monocytes % Eosinophils % Basophils % Absolute Neutrophils (1.2-6.7) k/cumm Absolute Lymphocytes (1.2-3.4) k/cumm Absolute Monocytes (0.11-0.7) k/cumm Absolute Eosinophils (0.0-0.7) k/cumm Absolute Basophils (0.0-0.2) k/cumm Differential Comment RBC Morphology D-Dimer (<500) ng/mlFEU Sodium (136-145) mmol/L Potassium (3.5-5.1) mmol/L Chloride (98-107) mmol/L Carbon Dioxide (21.0-32.0) mmol/L Anion Gap (3-11) mmol/L BUN (7-18) mg/dL Creatinine (0.55-1.02) mg/dL Estimated GFR/1.73 m2 (mL/min/1.73m2) Glucose (70-100) mg/dL Calcium (8.5-10.1) mg/dL Total Bilirubin (0.2-1.0) mg/dL AST (15-37) U/L ALT (12-78) U/L Alkaline Phosphatase (46-116) U/L Troponin I (0.00-0.06) ng/mL Total Protein (6.4-8.2) g/dL Albumin (3.4-5.0) g/dL TSH (0.358-3.74) uIU/mL Urine Color (Yellow) Yellow Urine Clarity Clear Urine pH (5-8) 5.5 Ur Specific [place] (1.005-1.025) <= 1.005 Urine Protein (Negative) mg/dL Negative Urine Ketones (Negative) mg/dL Negative Urine Blood (Negative) Negative Urine Nitrite (Negative) Negative Urine Bilirubin (Negative) Negative Urine Urobilinogen (Up TO 0.2) EU/dL 0.2 Ur Leukocyte Esterase (Negative) Negative Urine Glucose (Negative) mg/dL >=1000 H Urine Opiates Screen (Negative) Negative Urine Methadone Screen (Negative) Negative Ur Barbiturates Screen (Negative) Negative Ur Tricyclics Screen (Negative) Negative Ur Amphetamines Screen (Negative) Negative U Benzodiazepines Scrn (Negative) Negative Urine Cocaine Screen (Negative) Negative Ur THC Screen (Negative) Negative
--- NOTE | 2018-09-02 21:57 | DI.RAD_ITS ---
SYMPTOM/DIAGNOSIS: SOB, CHEST PAIN PA AND LATERAL CHEST: Comparison is made with 05/16/18. The cardiac and mediastinal contours have a normal appearance. The lungs are well inflated and clear. No infiltrate or effusion is seen. IMPRESSION: Negative chest xray.
--- NOTE | 2018-09-02 22:27 | DI.VRAD_ITS ---
EXAM: XR Chest, 2 Views EXAM DATE/TIME: 09/02/2018 9:55 PM CLINICAL HISTORY: 28 years old, female; Pain; Chest pain; Other: Mid upper anterior chest pain; Patient HX: Anxiety and chest pain for 5 days TECHNIQUE: XR of the chest, 2 views. COMPARISON: CR XR CHEST 2V PA LATERAL 05/26/2018 12:15 PM FINDINGS: Lungs: Unremarkable. No consolidation. Pleural space: Unremarkable. No pleural effusion. No pneumothorax. Heart/Mediastinum: Unremarkable. No cardiomegaly. Bones/joints: No acute skeletal abnormality. Soft tissues: Nipple piercings are noted bilaterally. Soft tissues otherwise unremarkable. IMPRESSION: Negative chest. Dictated and Authenticated by: Geremias Li MD. Ordering:YANETH Alvarado MD
[2018-09-02] MEDS: Ibuprofen 800 MG TAB PO (22:38)
[2018-09-02] MEDS: Acetaminophen 500 MG TAB 1000 MG PO (22:38)
[2018-09-02 23:14] VITALS: PULSE 82; RESP 18; TEMP 36.8; O2SAT 98
[2018-09-04 18:20] LABS: Hemoglobin A1C 11.7 % (4.5-6.2)
== END 2018-09-02 23:13 | disposition home or self-care (01) ==
PROVIDERS: Emergency Provider Student in an Organized Health Care Education/Training Program; PCP Family Medicine
DX: F41.9 Anxiety disorder, unspecified (principal); K21.9 Gastro-esophageal reflux disease without esophagitis; E11.9 Type 2 diabetes mellitus without complications; F17.210 Nicotine dependence, cigarettes, uncomplicated
CPT/HCPCS: 36415; 80053; 80307; 93005; 96361; 96372; 96374; 99285; 71046; 81003; 83036; 84443; 84484; 85025; 85379; 93010; J2060; J3490

== ENCOUNTER 2018-11-22 13:43 | Outpatient (REF) | payer MEDICAID, SELFPAY ==
[2018-11-22 21:16] LABS: COMMENT (LAB VIEW ONLY) 147.26 mg/dL; Microalb ug/mg Crea 11.7 ug/mg Cr
== END 2018-11-22 14:03 ==
LOC: NCHCN 13:43
PROVIDERS: PCP Family Medicine; Visit Provider Family Medicine
DX: E11.65 Type 2 diabetes mellitus with hyperglycemia (principal)
CPT/HCPCS: 82043; 82570

== ENCOUNTER 2019-01-07 22:05 | Emergency (ER) | payer MEDICAID, SELFPAY ==
[2019-01-07 22:09] VITALS: BP 130/95; PULSE 106; RESP 18; TEMP 36.5; O2SAT 100
--- NOTE | 2019-01-07 22:34 | ED.GENADUL_ITS ---
Discharge Plan Disposition Patient Disposition: HOME Condition: Stable Discharge Details Chief Complaint: Abd Prob Clinical Impression: Abdominal pain, Gastritis Primary Care Provider: Kerry Vo ED Provider: Sonny Sousa Home Meds and New Rx's Prescriptions: New sucralfate [Carafate] 1 gram tablet 1 gm PO Q6H Qty: 60 RF: 0 prochlorperazine maleate [Compazine] 10 mg tablet 10 mg PO Q8H PRN (Reason: nausea and vomiting) Qty: 30 RF: 0 Continued Sugar Balance 1 cap PO TID RF: 0 omeprazole 40 mg capsule,delayed release(DR/EC) 40 mg PO DAILY Qty: 20 RF: 0 Lyrica 50 mg Capsule 50 mg PO BID RF: 0 Ozempic 1 mg/dose (2 mg/1.5 mL) Pen Injector 1 mg SUBCUT QWEEK RF: 0 Discontinued ondansetron 4 mg Tablet,Disintegrating 4 mg PO TID PRNRF: 0 Discharge Instructions Instructions: Gastritis (ED) Additional Instructions: follow up with your primary care provider within a week if you have severe worsening of pain or persistent vomit return to the emergency department for reevaluation Medical Decision Making 28 yo female with hx of t1dm, prior tubal ligation otherwise no other prior abdominal surgeries comes in with chief complaint of intermittent abdominal pain and n/v for a week. She states she hasn't had her semaglutide in 5 weeks due to insurance reasons. Denies fevers, vaginal d/c or bleeding. She arrives in no distress. No upper abdominal tenderness, does have llq pain with palpation. Will tx for possible gastritic but also eval for possible pancreatitis and diverticulitis and monitor Pt drinking water, has mild epigsatric pain now on exam without guarding or rebound, no longer having any pain in lower abdomen on exam. Labs show ketones in urine, normal vbg so unlikely dka. CT shows no acute findings. Will d/c and add carafate to her meds and have her f/u with pcp, return precautions given Differential Diagnosis gastroenteritis, gerd, diverticulitis Medical Records Medical records reviewed: Yes I reviewed the patient's medical records. Imaging Data Radiologic Study: Attestation: I personally reviewed and interpreted this imaging study as follows: Imaging: CT Scan Radiologist's impression: IMPRESSION: Mild splenomegaly, unchanged. No acute findings. Lab Data Lab results reviewed: Yes I reviewed the patient's lab results. HPI General Mode of arrival: ambulatory . Date/Time Provider Initiated Documentation: 01/07/19 22:14 . Limitations to Documentation: no limitations . Information obtained by: patient . History of Present Illness 28 year old F presents to the emergency department with the chief complaint of abdominal pain, described as moderate, Quality is described as stabbing, and is localized to the abdomen. Patient reports no radiation. Patient started experiencing this week(s) (1) and it has been intermittent. No relieving factors improve symptom(s), No exacerbating factors reported . Patient notes nausea/vomiting. Patient did receive the following treatments prior to arrival, none Related Data Home Medications Medication Instructions Recorded Confirmed Sugar Balance 1 cap PO TID 09/02/18 01/07/19 omeprazole 40 mg PO DAILY #20 cap 09/02/18 01/07/19 Lyrica 50 mg PO BID 01/07/19 01/07/19 Ozempic 1 mg SUBCUT QWEEK 01/07/19 01/07/19 prochlorperazine maleate 10 mg PO Q8H PRN #30 tab 01/08/19 [Compazine] sucralfate [Carafate] 1 gm PO Q6H #60 tab 01/08/19 Previous Rx's Medication Instructions Recorded omeprazole 40 mg PO DAILY #20 cap 09/02/18 prochlorperazine maleate 10 mg PO Q8H PRN #30 tab 01/08/19 [Compazine] sucralfate [Carafate] 1 gm PO Q6H #60 tab 01/08/19 Allergies Allergy/AdvReac Type Severity Reaction Status Date / Time latex Allergy Mild Skin Rash Unverified 01/07/19 22:15 Penicillins Allergy Unknown as child Unverified 01/07/19 22:15 clindamycin AdvReac nausea/itch Unverified 01/07/19 22:15 ing General Stated Complaint: Abd Prob GHULAM: 3 Review of Systems Review of Systems All systems reviewed & are unremarkable except as noted in HPI and below Constitutional Denies chills, Denies fever(s) and Denies weakness Cardiovascular Denies chest pain and Denies dyspnea Respiratory Denies cough and Denies dyspnea Genitourinary Denies dysuria Neurologic Denies weakness PFSH Social History Smoking/Tobacco Use Status: Former Tobacco Use Quit Date: 11/15/18 Alcohol Intake: never Drug use: Never Substance use type: does not use Details: pt does use a juul Do you feel safe in your relationship?: Yes Additional Social history: pt is not alone to assess pivately Exam Const General: no acute distress Orientation: alert HENMT Head: normal to inspection Ears: external ears normal General nose exam: external nose normal Mouth: moist mucous membranes Eyes General: appearance normal, both eyes and all related structures Neck Neck: normal visual inspection Resp Effort & Inspection: normal respiratory effort and able to speak in complete sentences Cardio Rate: regular rate GI Palpation: soft Skin General skin exam: no rashes or lesions noted Neuro General: alert and oriented x3 Extrem General: normal to inspection Psych Mental Status: mental status grossly normal Course Vital Signs Temperature 36.5 C 01/07/19 22:09 Pulse 106 H 01/07/19 22:09 Respiratory Rate 18 01/07/19 22:09 Blood Pressure 130/95 H 01/07/19 22:09 Pulse Oximetry 100 01/07/19 22:09 Temperature 36.5 C 01/07/19 22:09 Temperature Source Skin 01/07/19 22:09 Pulse 106 H 01/07/19 22:09 Respiratory Rate 18 01/07/19 22:09 Respiratory Effort Non-Labored 01/07/19 22:13 Blood Pressure 130/95 H 01/07/19 22:09 Pulse Oximetry 100 01/07/19 22:09 Pain Level 7 01/07/19 22:17
[2019-01-07] MEDS: Normal Saline 1,000 ML 1000 ML IV (22:49)
[2019-01-07] MEDS: Prochlorperazine 10 MG/2 ML VIAL IVP (22:50)
[2019-01-07 23:00] LABS: BE (Venous) -0.6 mmol/L (-3-3); HCO3 (Venous) 25 mmol/L (22-28); O2 Sat (Venous) 55 % (70-80); TCO2 (Venous) 22 mmol/L (22-29); pCO2 (Venous) 41 mm/Hg (34-47); pH (Venous) 7.38 (7.32-7.43); pO2 (Venous) 29 mm/Hg (28-44)
[2019-01-07 23:03] LABS: Bilirubin Small (Negative); Blood Negative (Negative); Clarity Clear; Glucose 500 mg/dL (Negative); Ketones 15 mg/dL (Negative); Leukocyte Esterase Negative (Negative); Nitrite Negative (Negative); Specific Gravity >= 1.030 (1.005-1.025); pH 5.5 (5-8)
[2019-01-07 23:06] LABS: Abs Immature Grans 0.01 k/cumm (0.0-0.09); Absolute Basophil Count 0.02 k/cumm (0.0-0.2); Absolute Lymphocyte Count 3.72 k/cumm (1.2-3.4); Absolute Monocyte Count 0.49 k/cumm (0.11-0.7); Absolute Neutrophil Count 3.44 k/cumm (1.2-6.7); Basophils % 0.3; Eosinophils % 2.5; HCT 41.3 % (36.0-46.0); Immature Grans % 0.1; Lymphocytes % 47.2; Mean Corp. HGB Concentration 36.3 g/dL (32.0-36.0); Mean Corpuscular Volume 79.7 fL (80-95); Mean Platelet Volume 9.6 fL (8.0-11.0); Monocytes % 6.2; Neutrophils % 43.7; Platelet Count 162 x1000/uL (130-400); RBC 5.18 m/cumm (4.00-5.20); RBC Distribution Width 12.4 % (11.7-14.6); White Blood Cell Count 7.88 k/cumm (4.4-10.8)
[2019-01-07 23:13] LABS: Bacteria Few HPF (Negative); C & S Indicated? No/Sq. Contamination; Casts Negative LPF (Negative); Crystals Negative HPF (Negative); Epithelial Cells Moderate HPF (Negative); Mucus Moderate (Negative); Other Cells Negative (Negative); RBC Negative (0-2)
[2019-01-07 23:19] LABS: ALT 25 U/L (12-78); AST 8 U/L (15-37); Albumin 3.9 g/dL (3.4-5.0); Alkaline Phosphatase 76 U/L (46-116); Anion Gap 11.6 mmol/L (3-11); BUN 18 mg/dL (7-18); Bilirubin, Total 0.5 mg/dL (0.2-1.0); CO2 24.4 mmol/L (21.0-32.0); CREATININE 0.72 mg/dL (0.55-1.02); Calcium 9.3 mg/dL (8.5-10.1); Chloride 99 mmol/L (98-107); Glucose 290 mg/dL (70-100); Lipase 110 U/L (73-393); Magnesium 1.8 mg/dL (1.8-2.4); Potassium 3.6 mmol/L (3.5-5.1); Sodium 135 mmol/L (136-145); Total Protein 7.5 g/dL (6.4-8.2)
--- NOTE | 2019-01-07 23:30 | DI.CT_ITS ---
SYMPTOMS/DIAGNOSIS: NAUSEA, VOMITING, LT SIDED ABD PAIN CT ABDOMEN AND PELVIS: Post contrast examination was performed. The visualized lung bases are clear. The liver, gallbladder, bile ducts, pancreas, adrenal glands, kidneys, ureters and bladder are unremarkable as are the reproductive organs. There is unchanged mild splenomegaly. The spleen measures 16 cm. The bowel shows no evidence of obstruction, inflammation or infection. There is a normal appendix present. There is a trace amount of free fluid in the cul-de-sac which is likely physiologic. No significant abdominal or pelvic adenopathy, ascites or pneumoperitoneum is present. The aorta is of normal caliber. The bones appear intact. IMPRESSION: Stable splenomegaly. No acute abdominal or pelvic abnormality.
[2019-01-07] MEDS: Omnipaque 350 MG/ML 100 ML BTL IJ (23:40)
--- NOTE | 2019-01-07 23:55 | DI.VRAD_ITS ---
EXAM: CT Abdomen and Pelvis With Contrast EXAM DATE/TIME: 01/07/2019 10:31 PM CLINICAL HISTORY: 28 years old, female; Pain and signs and symptoms; Nausea and vomiting; Abdominal pain; Localized; Left; Prior surgery; Surgery date: 6+ months; Surgery type: Tubal ligation; Additional info: PT vomited mid exam so images redone with a delay. First set of partial images sent TECHNIQUE: Imaging protocol: Axial computed tomography images of the abdomen and pelvis with intravenous contrast. Coronal and sagittal reformatted images were created and reviewed. Radiation optimization: All CT scans at this facility use at least one of these dose optimization techniques: automated exposure control; mA and/or kV adjustment per patient size (includes targeted exams where dose is matched to clinical indication); or iterative reconstruction. Contrast material: OMNIPAQUE 350; Contrast volume: 100 ml; Contrast route: IV; COMPARISON: CT CHEST FOR PE, ABD PELVIS W 03/06/2018 9:45 PM FINDINGS: ABDOMEN: Liver: No suspicious lesions. Gallbladder and bile ducts: No acute or concerning findings. Pancreas: Unremarkable. No ductal dilation. Spleen: Spleen measures 16 cm transversely. Adrenals: Unremarkalbe. No suspicious mass. Kidneys and ureters: Unremarkable. No hydro. No suspicious lesions. Stomach and bowel: Unremarkable. No obstruction or inflammatory changes. Appendix: Normal appendix. PELVIS: Bladder: Unremarkable as visualized. Reproductive: Unremarkable as visualized. ABDOMEN and PELVIS: Intraperitoneal space: No free air. No significant fluid collection. Bones/joints: No acute fracture. No dislocation. Soft tissues: Unremarkable. Vasculature: Unremarkable. No acute findings Lymph nodes: Unremarkable. IMPRESSION: Mild splenomegaly, unchanged. No acute findings. Dictated and Authenticated by: Aaron Talley MD. Ordering:BELL Dennis MD
[2019-01-08 00:05] VITALS: BP 111/76; PULSE 82; RESP 18; O2SAT 97
== END 2019-01-08 00:19 | disposition home or self-care (01) ==
PROVIDERS: Emergency Provider Emergency Medicine; PCP Family Medicine
DX: K29.00 Acute gastritis without bleeding (principal); E10.9 Type 1 diabetes mellitus without complications
CPT/HCPCS: 36415; 36416; 80053; 82805; 82962; 83690; 96361; 96374; 99285; 74177; 81003; 81015; 83735; 85025; 99284; J0780; J3490

== ENCOUNTER 2019-07-17 16:21 | Outpatient (REF) | payer MEDICAID, SELFPAY ==
[2019-07-21 14:23] LABS: Chlamydia Result Negative (Negative); GC Result Negative (Negative)
== END 2019-07-17 16:41 ==
LOC: NCHCN 16:21
PROVIDERS: PCP Family Medicine; Visit Provider Nurse Practitioner Family
DX: R10.2 Pelvic and perineal pain (principal); Z00.00 Encounter for general adult medical examination without abnormal findings; Z11.3 Encounter for screening for infections with a predominantly sexual mode of transmission
CPT/HCPCS: 87491; 87591; 87480; 87510; 87660

== ENCOUNTER 2019-12-21 03:11 | Emergency (ER) | payer MEDICAID, SELFPAY ==
[2019-12-21 03:14] VITALS: BP 142/87; PULSE 105; RESP 16; TEMP 36.9; O2SAT 98
[2019-12-21] MEDS: Lidocaine 4% Cream 5 GM TUBE TP (03:30)
--- NOTE | 2019-12-21 03:32 | W.ED.GENAD ---
Discharge Plan Disposition Patient Disposition: HOME Condition: Good Discharge Details Chief Complaint: EarProblem Clinical Impression: Cutaneous abscess Primary Care Provider: Kerry Vo ED Provider: Christiano George Home Meds and New Rx's Prescriptions: New doxycycline hyclate 100 mg capsule 100 mg PO BID Qty: 20 RF: 0 Continued omeprazole 40 mg capsule,delayed release(DR/EC) 40 mg PO DAILY Qty: 20 RF: 0 Ozempic 1 mg/dose (2 mg/1.5 mL) Pen Injector 1 mg SUBCUT QWEEK RF: 0 Discharge Instructions Instructions: Abscess (ED) Additional Instructions: You had a small abscess behind her ear. I believe this was the cause of your pain. Currently you do not have true mastoiditis. Please take the antibiotic as directed. Do not take it with any Carafate or dairy products as this will decrease its effectiveness. Make sure that you do take it with food though. Take 600 mg of ibuprofen every 6 hours and maximum dose of 1000 mg of Tylenol every 6 hours to help with knee pain and swelling. Monitor your symptoms very closely if you notice that it is worsening or there is no improvement no need to come back immediately for reassessment and potential IV antibiotics. If you notice any worsening of your symptoms, or any new symptoms such as vomiting, diarrhea, fever, chills, shortness of breath, chest pain, numbness, weakness, or fainting , please return immediately to the emergency department for reevaluation. Please follow up with your primary care provider as soon as possible for reassessment and reevaluation. As always, it was a pleasure participating in your medical care today. Stand Alone Forms: Work Release Referrals: Kerry Vo MD [Primary Care Provider] - Medical Decision Making This is a pleasant 29-year-old female with a past medical history of fibromyalgia, type 2 diabetes, anxiety, who presents today for evaluation of left posterior ear pain. Patient suspects that she did get some bug bites few days ago as is par for the course for the area, however, the bug bites may have originated behind her left ear. Since then she has had mild pain swelling, culminating tonight. Physical exam demonstrates evidence of a superficial abscess, and bedside ultrasound shows no evidence of deep abscess component. The abscess itself is right behind the left ear, distinct from the mastoid process. She has notable tenderness throughout the entire area though, but much less so over the mastoid process itself. Internal ear does demonstrate evidence of mild nonpurulent effusion, likely related to a component of allergies and the other localized swelling. Diagnosis at this time is positive for superficial cutaneous abscess. We will perform incision and drainage technique. No clinical evidence of significant or severe mastoiditis, no systemic symptoms of fever or chills patient not seen indication for mastoiditis treatment or IV antibiotics at this time. Patient does have multiple allergies to penicillins and clindamycin, because of this we will use doxycycline for treatment. 4:30 AM I&D technique was performed with 18-gauge needle. A posterior inferior auricular block was also performed. 2 attempts were made using ultrasound confirmation to remove purulent material with 18-gauge needle, unfortunately only a small amount of purulence was able to be removed. Patient did not want any additional attempts at this time. Patient has elected to do trial of antibiotics. Patient will be discharged with doxycycline, and an extensive discussion with the patient describing the importance of very close monitoring and prompt return if she notes no improvement, or notices any worsening of her symptoms. Recommend continued Tylenol and Motrin for control of pain. I have extensively reviewed the treatment plan and discharge instructions with the patient. I have addressed all patient concerns at this time. The patient was made aware of what symptoms to monitor for that would warrant a return to the emergency department. Discussed the plan with the patient, they demonstrate verbal understanding and agreement with our assessment and plan at this time. HPI General Date/Time Provider Initiated Documentation: 12/21/19 03:32. HPI Narrative: 29-year-old female with a past medical history of fibromyalgia, type 2 diabetes, anxiety, tubal ligation, who presents today for evaluation of left ear pain. Patient states that a few days ago as is prior for the course to the area during the current season she received multiple bug bites after being outside. She suspects there may have been one bug bite behind her ear, over the last 3 days she has noticed mild pain, irritation and swelling behind her left ear, some itchiness on the inside of her ear, with gradual worsening of her pain culminating tonight. The area behind her left ear is notably tender, tender to palpation, worse with movement. She denies any systemic symptoms of whatsoever. She denies fever, chills, posterior neck pain, significant headache, or other complaints. No other modifying factors. She denies chest pain, shortness of breath, vomiting, diarrhea, vision changes, hearing changes. Related Data Home Medications Medication Instructions Recorded Confirmed omeprazole 40 mg PO DAILY #20 cap 09/02/18 12/21/19 Ozempic 1 mg SUBCUT QWEEK 01/07/19 12/21/19 doxycycline hyclate 100 mg PO BID #20 cap 12/21/19 Previous Rx's Medication Instructions Recorded omeprazole 40 mg PO DAILY #20 cap 09/02/18 doxycycline hyclate 100 mg PO BID #20 cap 12/21/19 Allergies Allergy/AdvReac Type Severity Reaction Status Date / Time latex Allergy Mild Skin Rash Unverified 01/07/19 22:15 Penicillins Allergy Unknown as child Unverified 01/07/19 22:15 clindamycin AdvReac nausea/itch Unverified 01/07/19 22:15 ing General Stated Complaint: EarProblem GHULAM: 4 Review of Systems All systems reviewed & are unremarkable except as noted in HPI and below PFSH Medical History Diabetes mellitus (Chronic) Fibromyalgia (Chronic) Surgical History S/P tubal ligation (Inactive) Social History Smoking/Tobacco Use Status: Former Tobacco Use Quit Date: 11/15/18 Alcohol Intake: never Drug use: Never Substance use type: does not use Details: pt does use a juul Do you feel safe at home: Yes Do you feel safe in your relationship?: Yes Additional Social history: pt is not alone to assess pivately Exam Narrative Exam Narrative: 1.Const: Well-nourished, Well-developed, appearing stated age 2.Eyes: PERRL, no conjunctival injection, and symmetrical lids. 3.ENT: Atraumatic external nose and ears. Moist MM. The patient's left posterior auricular space is mildly swollen, tender, bedside ultrasound confirms presence of small abscess with a fluid collection roughly 0.5 x 0.3 cm on the superficial component of the skin, less actual tenderness on the mastoid process itself which appears to be notably separate. Left internal ear canal demonstrates no significant erythema, there is mild erythema, and minimal effusion behind the left tympanic membrane, no purulent effusion, no evidence of rupture. No severe bulging. No significant left sided or right-sided cervical lymphadenopathy. Neck: Symmetric, trachea midline, No thyromegaly. Patient demonstrates good movement of cervical neck. There is no nuchal rigidity, no nuchal tenderness. Patient is able to flex the neck without any difficulty or significant pain. Negative Kernig's and Brudzinski sign. 4.CVS: +S1/S2, No murmurs or gallops. Peripheral pulses 2+ and equal in all extremities. Brisk capillary refill in all extremities. 5.RESP: Unlabored respiratory effort. Clear to auscultation bilaterally. No wheezes rales or rhonchi 6.GI: Soft, Nontender/Nondistended, No hepatosplenomegaly. No guarding or rebound. 7.MSK: Normocephalic/Atraumatic, Extremities w/o deformity or ttp No cyanosis or clubbing, Normal movement of all extremities 8.Skin: Warm, Dry. No rashes or lesions. 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 Sensation grossly intact, no focal neurologic deficits. 10.Psych: (AAO) x3. Appropriate mood and affect Course Vital Signs Vital signs: Vital Signs Temperature 36.9 C 12/21/19 03:14 Pulse 105 H 12/21/19 03:14 Respiratory Rate 16 12/21/19 03:14 Blood Pressure 142/87 H 12/21/19 03:14 Pulse Oximetry 98 12/21/19 03:14 Temperature 36.9 C 12/21/19 03:14 Temperature Source Skin 12/21/19 03:14 Pulse 105 H 12/21/19 03:14 Respiratory Rate 16 12/21/19 03:14 Respiratory Effort 12/21/19 03:22 Blood Pressure 142/87 H 12/21/19 03:14 Blood Pressure Position Supine 12/21/19 03:14 Pulse Oximetry 98 12/21/19 03:14 Oxygen Delivery Method Room Air 12/21/19 03:14 Oxygen Flow Rate 0 12/21/19 03:14 Pain Level 9 12/21/19 03:22
[2019-12-21] MEDS: Doxycycline Hyclate 100 MG, 2 CAPS/BTL PO (03:54)
--- NOTE | 2019-12-21 04:46 | NUR.NOTE ---
Pt refused band aid/tape for left ear wound. it's just going to hurt to pull it off. Gauze applied behind mask loop. Ambulated to exit with steady gait.
== END 2019-12-21 04:35 | disposition home or self-care (01) ==
LOC: ER 04:26
PROVIDERS: Emergency Provider Student in an Organized Health Care Education/Training Program; PCP Family Medicine
DX: H60.02 Abscess of left external ear (principal); E11.9 Type 2 diabetes mellitus without complications
CPT/HCPCS: 10160; 87070

== ENCOUNTER 2020-03-19 15:49 | Outpatient (REF) | payer MEDICAID, SELFPAY ==
[2020-03-19 21:05] LABS: HCT 40.2 % (36.0-46.0); HGB 14.1 g/dL (11.2-15.7); MCH 29.1 pg (27.0-33.0); MCHC 35.1 % (32.0-36.0); MCV 83.1 fL (80-95); Platelet Count 205 10^3/uL (130-400); RBC 4.84 10^6/uL (3.93-5.22); RDW 11.9 % (11.7-14.6); RDW-SD 35.8 fL; WBC 6.91 10^3/uL (4.4-10.8)
[2020-03-19 21:43] LABS: ESR 14 mm/hr (0-20)
[2020-03-19 21:45] LABS: COMMENT (LAB VIEW ONLY) 107.63 mg/dL; Microalb ug/mg Crea 16.4 ug/mg Cr
[2020-03-19 22:23] LABS: ALT 18 U/L (14-59); AST 15 U/L (15-37); Albumin 3.5 g/dL (3.4-5.0); Alkaline Phosphatase 66 U/L (46-116); Anion Gap 11.8 mmol/L (3-11); BUN 17 mg/dL (7-18); Bilirubin, Total 0.7 mg/dL (0.2-1.0); CO2 22.2 mmol/L (21.0-32.0); CREATININE 0.66 mg/dL (0.55-1.02); Calcium 8.6 mg/dL (8.5-10.1); Chloride 102 mmol/L (98-107); Ferritin 85 ng/mL (8-252); Glucose 356 mg/dL (74-106); Potassium 3.9 mmol/L (3.5-5.1); Sodium 136 mmol/L (136-145); TSH (W/Ref FT4) 0.82 uIU/mL (0.36-3.74); Total Protein 6.3 g/dL (6.4-8.2); Vitamin B12 891 pg/mL (193-986)
[2020-03-19 22:29] LABS: Folate > 20.0 ng/mL (8.6-20.0)
[2020-03-19 22:36] LABS: C-Reactive Protein 0.45 mg/dL (0.0-0.3)
[2020-03-22 09:15] LABS: Cyclic Citrullinated Peptide <2.5 U/mL (<5.0)
== END 2020-03-19 16:09 ==
LOC: NCHCN 15:49
PROVIDERS: PCP Family Medicine; Visit Provider Family Medicine
DX: E11.65 Type 2 diabetes mellitus with hyperglycemia (principal); R53.83 Other fatigue
CPT/HCPCS: 80053; 85027; 85652; 86200; 82043; 82570; 82607; 82728; 82746; 84443; 86140

== ENCOUNTER 2020-03-24 11:41 | Outpatient (REF) | payer MEDICAID, SELFPAY ==
[2020-03-25 16:47] LABS: Chlamydia Result Negative (Negative); GC Result Negative (Negative)
== END 2020-03-24 12:01 ==
LOC: LBN 11:41
PROVIDERS: PCP Family Medicine; Visit Provider Nurse Practitioner Women's Health
DX: Z11.3 Encounter for screening for infections with a predominantly sexual mode of transmission (principal)
CPT/HCPCS: 87491; 87591

== ENCOUNTER 2020-08-24 11:09 | Outpatient (REF) | payer MEDICAID, SELFPAY ==
[2020-08-24 13:29] LABS: Hemoglobin A1C 11.4 % (<5.7)
[2020-08-25 17:50] LABS: Fructosamine 486 mcmol/L (200 - 285)
== END 2020-08-24 11:29 ==
LOC: LBN 11:09
PROVIDERS: PCP Family Medicine; Visit Provider Family Medicine
DX: E11.65 Type 2 diabetes mellitus with hyperglycemia (principal)
CPT/HCPCS: 82985; 83036

== ENCOUNTER 2021-04-01 13:54 | Outpatient (REF) | payer MEDICAID, SELFPAY | END 2021-04-01 13:55 | disposition home or self-care (01) | LOC: LBN 13:54 | PROVIDERS: PCP Family Medicine; Visit Provider Obstetrics & Gynecology | DX: N89.8 Other specified noninflammatory disorders of vagina (principal) | CPT/HCPCS: 87480; 87510; 87660 ==

== ENCOUNTER 2021-05-05 15:56 | Emergency (ER) | payer MEDICAID, SELFPAY ==
[2021-05-05] VITALS (10 sets, daily range): BP systolic 113–122; BP diastolic 79–84; PULSE 100–111; RESP 12–30; TEMP 36.5–36.7; O2SAT 97–99
--- NOTE | 2021-05-05 15:45 | RT.EKG_ITS ---
APPROVED REPORT Exam: Resting ECG Reason for Exam: chest pain Patient Location: E HR:107 bpm ECG Measurements Heart Rate 107 AXIS TN 174 P 52 QRSd 87 QRS -15 QT 334 T 40 QTc 446 Conclusion Sinus tachycardia...rate> 99 Low voltage, precordial leads...precordial leads <1.0mV
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
--- NOTE | 2021-05-05 16:30 | DI.RAD_ITS ---
Exam(s) XR CHEST 2V PA LATERAL EXAM: XR CHEST 2V PA LATERAL CLINICAL HISTORY: Chest pain TECHNIQUE: 2D digital imaging was performed. COMPARISON: CR XR CHEST 2V PA LATERAL from 09/02/2018 FINDINGS: The heart is not enlarged. The lungs are clear and well expanded. No pleural effusion seen. Mediastin al contours appear intact. IMPRESSION: Normal chest. RADIATION DOSE DELIVERED: Total DLP
[2021-05-05 16:44] LABS: Bilirubin Negative (Negative); Blood Large (Negative); Clarity Clear (Clear); Glucose >=1000 mg/dL (Negative); Ketones Negative (Negative); Leukocyte Esterase Negative (Negative); Nitrite Negative (Negative); Urobilinogen 0.2 EU/dL (Up TO 0.2)
[2021-05-05] MEDS: Aspirin 81 MG CHEW 324 MG CH (16:48)
[2021-05-05 16:49] LABS: Bacteria Few HPF (Negative); C & S Indicated? No; Casts Negative LPF (Negative); Crystals Negative HPF (Negative); Epithelial Cells Few HPF (Negative); Mucus Negative (Negative); Other Cells Negative (Negative); RBC 20-50 HPF (0-2); WBC 0-2 HPF (0-5)
[2021-05-05 17:00] LABS: Abs Immature Grans 0.01 10^3/uL (0.0-0.06); Absolute Basophil Count 0.02 10^3/uL (0.0-0.2); Absolute Eosinophil Count 0.13 10^3/uL (0.0-0.7); Absolute Lymphocyte Count 2.91 10^3/uL (1.2-3.4); Absolute Monocyte Count 0.32 10^3/uL (0.1-0.8); Absolute Neutrophil Count 3.39 10^3/uL (1.2-6.7); Basophils % 0.3; Eosinophils % 1.9; HCT 37.3 % (36.0-46.0); HGB 13.1 g/dL (11.2-15.7); Immature Grans % 0.1; Lymphocytes % 42.9; MCH 28.9 pg (27.0-33.0); MCHC 35.1 % (32.0-36.0); MCV 82.3 fL (80-95); MPV 9.3 fL (8.0-11.0); Monocytes % 4.7; Neutrophils % 50.1; Nucleated RBC 0 %; Platelet Count 179 10^3/uL (130-400); RBC 4.53 10^6/uL (3.93-5.22); RDW 11.8 % (11.7-14.6); RDW-SD 34.8 fL; WBC 6.78 10^3/uL (4.4-10.8)
[2021-05-05 17:04] LABS: Lipase 160 U/L (73-393)
[2021-05-05 17:11] LABS: ALT 17 U/L (14-59); AST 7 U/L (15-37); Albumin 3.3 g/dL (3.4-5.0); Alkaline Phosphatase 65 U/L (46-116); Anion Gap 8.2 mmol/L (3-11); BUN 19 mg/dL (7-18); Bilirubin, Total 0.3 mg/dL (0.2-1.0); CO2 23.8 mmol/L (21.0-32.0); CREATININE 1.4 mg/dL (0.55-1.02); Calcium 8.7 mg/dL (8.5-10.1); Chloride 97 mmol/L (98-107); Estimated GFR 43.58 (mL/min/1.73m2); Magnesium 1.8 mg/dL (1.8-2.4); Potassium 4.3 mmol/L (3.5-5.1); Sodium 129 mmol/L (136-145); Total Protein 6.5 g/dL (6.4-8.2)
[2021-05-05 17:12] LABS: Troponin I < 0.05 ng/mL (<0.06)
[2021-05-05 17:13] LABS: Glucose 665 mg/dL (74-106)
[2021-05-05 17:30] LABS: D-Dimer 252 ng/mlFEU (<500)
--- NOTE | 2021-05-05 18:01 | DI.VRAD_ITS ---
PROCEDURE INFORMATION: Exam: XR Chest Exam date and time: 05/05/2021 4:37 PM Age: 31 years old Clinical indication: Other: Chest pain TECHNIQUE: Imaging protocol: XR of the chest. Views: 2 views. COMPARISON: CR XR CHEST 2V PA LATERAL 09/02/2018 9:43 PM FINDINGS: Lungs: Unremarkable. No consolidation. Pleural spaces: Unremarkable. No pleural effusion. No pneumothorax. Heart/Mediastinum: Unremarkable. No cardiomegaly. Bones/joints: Unremarkable. IMPRESSION: No acute findings. Dictated and Authenticated by: Doroteo Lopez MD. Ordering:KACIE Rivas MD
== END 2021-05-05 18:23 | disposition left against medical advice (07) ==
PROVIDERS: Emergency Provider Registered Nurse Emergency; PCP Family Medicine
DX: E11.65 Type 2 diabetes mellitus with hyperglycemia (principal); R07.9 Chest pain, unspecified; Z53.29 Procedure and treatment not carried out because of patient's decision for other reasons
CPT/HCPCS: 80053; 81025; 83690; 93005; 99284; 71046; 81003; 81015; 83735; 84484; 85025; 85379; 93010; 99283

== ENCOUNTER 2021-06-13 01:52 | Outpatient (CLI) | payer MEDICAID, SELFPAY ==
--- NOTE | 2021-06-13 14:45 | DI.US_ITS ---
APPROVED REPORT EXAM: Comprehensive 2D, Doppler, and color-flow Echocardiogram Patient Location: Out-Patient [employer] Machine Operator: Florinda Gutierrez RDCS (AE) Indications: Chest pain, Poorly controlled Diabetes Other Information Study Quality: Adequate Conclusion Normal left ventricular wall thickness and chamber size. Estimated ejection fraction is 60%. Wall m otion is normal Normal right ventricular size and systolic function Both atria are normal in size There is no structural or hemodynamically significant valvular disease Wall motion Left Ventricle The left ventricle is normal size. The left ventricular systolic function is normal. The left ventric ular ejection fraction is within the normal range. There is normal left ventricular wall thickness. T here is normal LV segmental wall motion. There is no ventricular septal defect visualized. LVEF is 60 %. Right Ventricle The right ventricle is normal size. The right ventricular systolic function is normal. Atria The left atrium size is normal. The right atrium size is normal. The interatrial septum is intact wit h no evidence for an atrial septal defect. Aortic Valve The aortic valve is normal in structure. Aortic valve is trileaflet. There is no aortic valvular sten osis. No aortic regurgitation is present. Mitral Valve The mitral valve is normal in structure. No evidence of mitral valve stenosis. Trace mitral regurgita tion. Tricuspid Valve The tricuspid valve is normal in structure. There is no tricuspid valve stenosis. Trace tricuspid reg urgitation. Unable to assess PA pressure. Pulmonic Valve The pulmonary valve is normal in structure. There is no pulmonic valvular stenosis. There is no pulmo michela valvular regurgitation. Great Vessels The aortic root is normal in size. The ascending aorta is normal in size. Aortic arch is normal in ca liber. IVC is normal in size and collapses >50% with inspiration. Pericardium There is no pericardial effusion. 2D Dimensions IVSD d PLAX 0.95 cm F: 0.6-1.0 LV Vol A2C d MOD 82.1 mL LVPW d PLAX 0.97 cm F: 0.6 - 1.0 LV Vol A4C d MOD 85.8 mL LVID d PLAX 4.13 cm F: 3.8 - 5.2 LA vol/ BSA A2C s A-L 9.4 mL/m2 LVDs 2.75 cm F: 2.2 - 3.5 LA vol/ BSA A4C s A-L 10.7 mL/m2 Ao Root d 2.91 cm F: 2.7 - 3.3 LA Vol/ BSA Biplane s A-L 10.2 mL/m2 RA Area A4C 7.32 cm2 LA Area A4C s MOD 9.40 cm2 RA Vol/ BSA A4C s A-L 7.5 mL/m2 LA Area A2C s MOD 8.94 cm2 Ao Asc Diam d 3.19 cm F: 2.3 - 3.1 LV EF A4C MOD 57.8 % LV EF Teichholz 61.3 % LV EF A2C MOD 58.0 % LVEF (Nichols's) 56.97 % F: 54 - 74 LV EF Biplane MOD 57.0 % LV Volume 66.27 mL F: 46 - 106 SV 48.57 mL LV Volume Index 36.81 mL/m2 F: 29 - 61 SV Index 26.94 mL/m2 LV Vol Biplane MOD 85.2 mL FS 32.50 % M-Mode TAPSE 1.85 cm (M/F) >1.7 LV Diastology MV E' medial 0.095 (>0.07 m/s) E/A Ratio 1.2 LV E/e MED 8.50 (<14) MV E Vmax 0.81 (0.4-1.3 m/s) MV E' lateral 0.124 (>0.1 m/s) MV A Vmax 0.70 (0.4-1.3 m/s) LV E/e LAT 6.50 (<14) MV E/A Ratio 1.14 MV E/E' medial 8.53 MV E/E' lateral 6.51 Aortic Valve LVOT Area 3.54 cm2 AoV Area Vmax 2.84 cm2 LVOT Vmax 0.76 m/s AoV Area/ BSA (Vmax) 1.57 cm2/m2 LVOT Mean James. 0.50 m/s KAREN Mean James. 2.63 cm2 LVOT Peak Grad 2.3 mmHg KAREN Mean James. Index 1.46 cm2/m2 LVOT Mean Grad 1.2 mmHg LVOT VTI 0.144 m LVOT Diam s 2.10 cm AoV Vmax 0.95 m/s Velocity Ratio 0.80 AoV Mean James. 0.67 m/s AoV Peak Grad 3.6 mmHg LVOT SV 50.95 mL AoV Mean Grad 2.0 mmHg AoV VTI 0.165 m AoV Area VTI 3.09 cm2 AoV Area/ BSA (VTI) 1.71 cm/m2 Mitral Valve MV DT 214 (160-240 msec) MV PHT 62 msec MV Area PHT 3.55 cm2 MV VTI 0.170 m MV Area VTI 2.99 (4.0-6.0 cm2) Pulmonary Valve PV Vmax 0.90 (0.5-1.5 m/s) RVOT Peak Gr. 1.90 mmHg PV Peak Grad 3.3 mmHg RVOT Mean Gr. 1.00 mmHg PV Mean Grad 1.8 mmHg RVOT VTI 0.136 m PV VTI 0.173 m RVOT Vmax 0.69 m/s
== END 2021-06-13 02:12 ==
PROVIDERS: PCP Family Medicine; Visit Provider Family Medicine
DX: R07.9 Chest pain, unspecified (principal); E10.65 Type 1 diabetes mellitus with hyperglycemia
CPT/HCPCS: 93306

== ENCOUNTER 2021-07-24 14:30 | Emergency (ER) | payer MEDICAID, SELFPAY ==
[2021-07-24] VITALS (17 sets, daily range): BP systolic 121–141; BP diastolic 75–90; PULSE 83–125; RESP 14–29; TEMP 36.2–36.6; O2SAT 82–100
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
[2021-07-24 15:02] LABS: Abs Immature Grans 0.01 10^3/uL (0.0-0.06); Absolute Basophil Count 0.02 10^3/uL (0.0-0.2); Absolute Eosinophil Count 0.09 10^3/uL (0.0-0.7); Absolute Lymphocyte Count 2.65 10^3/uL (1.2-3.4); Absolute Monocyte Count 0.38 10^3/uL (0.1-0.8); Absolute Neutrophil Count 2.44 10^3/uL (1.2-6.7); Basophils % 0.4; Eosinophils % 1.6; Immature Grans % 0.2; Lymphocytes % 47.4; MCH 29.5 pg (27.0-33.0); MCHC 35.9 % (32.0-36.0); MCV 82.1 fL (80-95); MPV 9.1 fL (8.0-11.0); Monocytes % 6.8; Neutrophils % 43.6; Nucleated RBC 0 %; Platelet Count 183 10^3/uL (130-400); RBC 4.75 10^6/uL (3.93-5.22); RDW-SD 35.7 fL; WBC 5.59 10^3/uL (4.4-10.8)
[2021-07-24 15:02] LABS: Bilirubin Negative (Negative); Blood Trace-intact (Negative); Clarity Clear (Clear); Glucose >=1000 mg/dL (Negative); Ketones 15 mg/dL (Negative); Leukocyte Esterase Negative (Negative); Nitrite Negative (Negative); Specific Gravity 1.015 (1.005-1.025); Urobilinogen 0.2 EU/dL (Up TO 0.2)
[2021-07-24 15:04] LABS: BE (Venous) -2 mmol/L (-2-3); HCO3 (Venous) 23 mmol/L (23-28); O2 Sat (Venous) 68 %; TCO2 (Venous) 21 mmol/L (24-29); pCO2 (Venous) 40 mmHg (41-51); pH (Venous) 7.37 (7.31-7.41); pO2 (Venous) 34 mmHg
[2021-07-24 15:12] LABS: Bacteria Moderate HPF (Negative); C & S Indicated? No; Crystals Negative HPF (Negative); Epithelial Cells Many HPF (Negative); Mucus Negative (Negative); RBC 0-2 HPF (0-2); WBC Negative HPF (0-5)
[2021-07-24 15:24] LABS: ALT 27 U/L (14-59); Albumin 3.6 g/dL (3.4-5.0); Alkaline Phosphatase 74 U/L (46-116); Anion Gap 9.8 mmol/L (3-11); BUN 14 mg/dL (7-18); Bilirubin, Total 0.5 mg/dL (0.2-1.0); CO2 23.2 mmol/L (21.0-32.0); CREATININE 0.9 mg/dL (0.55-1.02); Calcium 8.4 mg/dL (8.5-10.1); Chloride 94 mmol/L (98-107); Sodium 127 mmol/L (136-145); Total Protein 7.1 g/dL (6.4-8.2)
[2021-07-24 15:26] LABS: Glucose 650 mg/dL (74-106)
--- NOTE | 2021-07-24 15:30 | DI.CT_ITS ---
Exam(s) CT RENAL COLIC WO EXAM: CT RENAL COLIC WO CLINICAL HISTORY: R flank pain, r/o kidney stone. TECHNIQUE: Imaging Protocol: Axial computed tomography images with coronal and sagittal reformatted images were created and reviewed CONTRAST MATERIAL: Intravenous: none Oral: None COMPARISON: CT CT ABDOMEN PELVIS W from 01/07/2019 FINDINGS: VISUALIZED LUNG BASES: No nodules nor pleural effusions evident. ABDOMEN: There is no ascites. LIVER: There are no obvious focal hepatic lesions evident of this noninfused study. GALLBLADDER/BILIARY: No obvious gallbladder pathology. CBD is not dilated. PANCREAS: No evidence of pancreatic mass nor dilatation of the pancreatic duct. SPLEEN: Spleen is not enlarged. No obvious intrasplenic lesions. ADRENALS: There are no significant adrenal masses. KIDNEYS:No cysts evident. No solid renal masses. No calculi nor hydronephrosis. . ABDOMINAL AORTA: Abdominal aorta is not enlarged. LYMPH NODES: There is no retroperitoneal nor paraaortic adenopathy. ABDOMINAL WALL: No evidence of significant anterior abdominal wall nor inguinal hernia. GI: There is no evidence of bowel obstruction, free air, nor abscess. PELVIS: LYMPH NODES: There is no intrapelvic nor inguinal adenopathy. GI: No evidence of appendicitis.No evidence of sigmoid diverticulitis. URINARY BLADDER: No calculi nor obvious masses evident REPRODUCTIVE: Unremarkable OSSEOUS: No significant osseous lesions. IMPRESSION: 1. No significant findings on this noninfused CT scan of the abdomen and pelvis. 2. No renal calculi nor obstructive uropathy evident. 3. No ascites evident. RADIATION DOSE DELIVERED: 890.15mGy.cm Total DLP DATA REPOSITORY: All CT scans at this facility are submitted to the National Radiology Data Registry (NRDR) Dose Index Registry (DIR) with the [employer] (ACR). RADIATION OPTIMIZATION: All CT scans at this facility use at least one of these dose optimization te chniques: automated exposure control; mA and/or kV adjustment per patient size (includes targeted exa ms where dose is matched to clinical indication); or iterative reconstruction.
[2021-07-24] MEDS: Normal Saline 1,000 ML 1000 ML IV ×3 (15:35→18:37)
[2021-07-24] MEDS: Ketorolac 30 MG/ML VIAL IVP (15:45)
[2021-07-24 15:48] LABS: AST 15 U/L (15-37)
--- NOTE | 2021-07-24 17:02 | DI.VRAD_ITS ---
PROCEDURE INFORMATION: Exam: CT Abdomen And Pelvis Without Contrast Exam date and time: 07/24/2021 3:44 PM Age: 31 years old Clinical indication: Other: R flank pain, R/O kidney stone TECHNIQUE: Imaging protocol: Computed tomography of the abdomen and pelvis without contrast. COMPARISON: CT ABDOMEN PELVIS W 01/07/2019 11:16 PM FINDINGS: Lungs: Visualized lung bases are clear. Liver: There is enlargement of the liver, measuring 20 cm. The liver is otherwise unremarkable. Gallbladder and bile ducts: Normal. No calcified stones. No ductal dilation. Pancreas: Normal. No ductal dilation. Spleen: Normal. No splenomegaly. Adrenal glands: Normal. No mass. Kidneys and ureters: Normal. No hydronephrosis. Stomach and bowel: No bowel obstruction or significant bowel wall thickening. There is excessive colonic stool content. Appendix: A normal appendix is identified. Intraperitoneal space: No free fluid, fluid collections, or pneumoperitoneum. Retroperitoneal space: No acute abnormalities in the retroperitoneal space. Vasculature: There are numerous benign phleboliths in the pelvis. Lymph nodes: No retroperitoneal, pelvic, or mesenteric adenopathy. Urinary bladder: The bladder is decompressed. Reproductive: 2.7 cm cyst in the left adnexa. No further imaging is recommended. (Reference: Luis E). The reproductive organs are otherwise unremarkable. Bones/joints: No acute skeletal abnormality or aggressive osseous lesion. Soft tissues: No acute body wall soft tissue findings. IMPRESSION: No acute abdominopelvic pathology. Specifically, no obstructive uropathy or nephrolithiasis. REFERENCES: Luis E et al. Management of Incidental Adnexal Findings on CT and MRI: A White Paper of the ACR Incidental Findings Committee, J Am Fredrick Radiol. 2019;17(2):248-254. Dictated and Authenticated by: Geremias Li MD. Ordering:PATRICIA Rivas MD
[2021-07-24 17:56] LABS: BUN 14 mg/dL (7-18); CREATININE 0.8 mg/dL (0.55-1.02); Calcium 7.7 mg/dL (8.5-10.1); Chloride 99 mmol/L (98-107); Potassium 4.3 mmol/L (3.5-5.1); Sodium 131 mmol/L (136-145)
[2021-07-24 17:57] LABS: Glucose 597 mg/dL (74-106)
== END 2021-07-24 21:00 | disposition home or self-care (01) ==
PROVIDERS: Emergency Provider Physician Assistant; PCP Family Medicine
DX: E11.65 Type 2 diabetes mellitus with hyperglycemia (principal); Z91.14 Patient's other noncompliance with medication regimen; R10.9 Unspecified abdominal pain
CPT/HCPCS: 36415; 36416; 80048; 80053; 81025; 82805; 82962; 96361; 96374; 99284; 74176; 81003; 81015; 85025; J1885

== ENCOUNTER 2021-08-24 17:02 | Outpatient (REF) | payer MEDICAID, SELFPAY ==
[2021-08-24 19:29] LABS: COMMENT (LAB VIEW ONLY) 26.11 mg/dL; Microalb ug/mg Crea 17.2 ug/mg Cr
== END 2021-08-24 17:03 | disposition home or self-care (01) ==
LOC: NCHCN 17:02
PROVIDERS: PCP Family Medicine; Visit Provider Family Medicine
DX: E11.65 Type 2 diabetes mellitus with hyperglycemia (principal)
CPT/HCPCS: 82043; 82570

== ENCOUNTER 2022-02-17 14:44 | Outpatient (REF) | payer MEDICAID, SELFPAY ==
--- NOTE | 2022-02-17 13:30 | PAPFT_PTH ---
PATIENT: Tatiana Meek LOC: [facility]#:[id number] AGE/SX: 32/F ROOM: RE02/17/[address]: Kerry Vo : 1990 BED: DIS: 02/17/2022 SPEC #: [id number] RECD: 02/17/22 18:17 STATUS: NICOLE REQ #: [id number] JAMEEL: 02/17/22 13:[address]: Kerry Vo DEPT[facility] Cytology RECD BY: Rashmi Nation Tissues: 1 - CX/ENDOCX FOR PAP SMEARS Procedures: PAP THIN PREP/UVM Screening HPV DNA PROBE Comments: [id number] (CHLAMYDIA/GC) (HPV 16 & 18/45)
[2022-02-21 07:21] LABS: Chlamydia Result Negative (Negative); GC Result Negative (Negative)
== END 2022-02-17 14:45 | disposition home or self-care (01) ==
LOC: NCHCN 14:44
PROVIDERS: PCP Family Medicine; Visit Provider Family Medicine
DX: N76.0 Acute vaginitis (principal); Z12.4 Encounter for screening for malignant neoplasm of cervix; Z11.51 Encounter for screening for human papillomavirus (HPV); Z11.3 Encounter for screening for infections with a predominantly sexual mode of transmission; R87.810 Cervical high risk human papillomavirus (HPV) DNA test positive
CPT/HCPCS: 87491; 87591; 88142; 87480; 87510; 87624; 87660

== ENCOUNTER 2022-05-26 11:13 | Outpatient (REF) | payer MEDICAID, SELFPAY ==
[2022-05-26 15:42] LABS: HCT 36.7 % (36.0-46.0); MCH 28.9 pg (27.0-33.0); MCHC 35.4 % (32.0-36.0); MCV 82 fL (80-95); MPV 9.8 fL (8.0-11.0); Platelet Count 206 10^3/uL (130-400); RDW 12.1 % (11.7-14.6); RDW-SD 35.6 fL; WBC 7.29 10^3/uL (4.4-10.8)
[2022-05-26 17:03] LABS: Anion Gap 11.4 mmol/L (3-11); BUN 14 mg/dL (7-18); CO2 23.6 mmol/L (21.0-32.0); CREATININE 0.9 mg/dL (0.55-1.02); Calcium 8.9 mg/dL (8.5-10.1); Chloride 97 mmol/L (98-107); Estimated GFR 86.57 (mL/min/1.73m2); Glucose 466 mg/dL (74-106); Potassium 3.9 mmol/L (3.5-5.1); Sodium 132 mmol/L (136-145); TSH (W/Ref FT4) 4.64 uIU/mL (0.36-3.74)
[2022-05-26 17:19] LABS: FREE T4 1.01 ng/dL (0.76-1.46)
[2022-05-27 13:05] LABS: Fructosamine 501 mcmol/L (200 - 285)
[2022-05-29 10:43] LABS: HIV-1/2 Ag & Ab Screen Negative (Negative)
[2022-05-29 10:50] LABS: Hepatitis C Ab w Rflx HCV PCR Negative (Negative)
== END 2022-05-26 11:14 | disposition home or self-care (01) ==
LOC: NCHCN 11:13
PROVIDERS: PCP Family Medicine; Visit Provider Family Medicine
DX: E11.65 Type 2 diabetes mellitus with hyperglycemia (principal); M79.604 Pain in right leg; M79.605 Pain in left leg; K59.09 Other constipation; Z11.4 Encounter for screening for human immunodeficiency virus [HIV]; Z11.59 Encounter for screening for other viral diseases
CPT/HCPCS: 80048; 85027; 86803; 87389; 82985; 84439; 84443

== ENCOUNTER 2023-02-15 13:41 | Outpatient (CLI) | payer MEDICAID, SELFPAY ==
[2023-02-15 11:46] LABS: Abs Immature Grans 0.02 10^3/uL (0.0-0.06); Absolute Basophil Count 0.03 10^3/uL (0.0-0.2); Absolute Eosinophil Count 0.11 10^3/uL (0.0-0.7); Absolute Lymphocyte Count 2.64 10^3/uL (1.2-3.4); Absolute Monocyte Count 0.38 10^3/uL (0.1-0.8); Absolute Neutrophil Count 2.59 10^3/uL (1.2-6.7); Basophils % 0.5; Eosinophils % 1.9; HCT 35.6 % (36.0-46.0); HGB 12.8 g/dL (11.2-15.7); Immature Grans % 0.3; Lymphocytes % 45.8; MCH 28.8 pg (27.0-33.0); MCV 80 fL (80-95); Monocytes % 6.6; Neutrophils % 44.9; Platelet Count 193 10^3/uL (130-400); RBC 4.45 10^6/uL (3.93-5.22); RDW 12.5 % (11.7-14.6); RDW-SD 35.8 fL; WBC 5.77 10^3/uL (4.4-10.8)
[2023-02-15 12:16] LABS: Anion Gap 9.5 mmol/L (3-11); BUN 17 mg/dL (7-18); CO2 24.5 mmol/L (21.0-32.0); CREATININE 0.7 mg/dL (0.55-1.02); Calcium 8.7 mg/dL (8.5-10.1); Chloride 97 mmol/L (98-107); Estimated GFR 116.31 (mL/min/1.73m2); Glucose 495 mg/dL (74-106); Potassium 4.2 mmol/L (3.5-5.1); Sodium 131 mmol/L (136-145)
[2023-02-15 12:21] LABS: Hemoglobin A1C > 13.0 % (<5.7)
== END 2023-02-15 13:42 | disposition home or self-care (01) ==
LOC: LBO 13:43
PROVIDERS: PCP Family Medicine; Visit Provider Student in an Organized Health Care Education/Training Program
DX: D64.9 Anemia, unspecified (principal); N92.0 Excessive and frequent menstruation with regular cycle; E11.65 Type 2 diabetes mellitus with hyperglycemia; R79.89 Other specified abnormal findings of blood chemistry
CPT/HCPCS: 36415; 80048; 83036; 85025

== ENCOUNTER → 2023-04-11 01:00 | Outpatient (CLI) | payer MEDICAID, SELFPAY ==
--- NOTE | 2023-04-11 07:15 | DI.US_ITS ---
Exam(s) US PELVIS TRANSVAGINAL EXAM: US PELVIS TRANSVAGINAL CLINICAL HISTORY: menorrhagia,n92.0 TECHNIQUE: Ultrasound of the pelvis was performed both transabdominal and transvaginal. COMPARISON: Prior CT scan 07/24/2021 FINDINGS: UTERUS: Nongravid and anteverted Measures 7.5 cm length x 4.6 cm AP x 5 cm wide. There is a posterior myometrial fibroid mid upper level measuring approximately 1.6 x 1 point 4 x 1.0 cm. No other fibroids noted. Endometrial thickness measures 6 mm. There is no fluid in the endometrial canal. CERVIX: There are no obvious nabothian cysts. RIGHT OVARY: Measures 2.2 x 1.6 x 3.5 cm No significant cysts nor masses evident in the right ovary. Small sub cm cysts. LEFT OVARY: Measures 3 x 2.1 x 1.8 cm There is a follicular cyst in left ovary measuring 1.5 cm CUL-DE-SAC: No free fluid evident. IMPRESSION: 1. Small posterior myometrial fibroid noted measuring 1.6 x 1.4 x 1.0 cm. Endometrial thickness is 6 mm. No fluid in the endometrial canal. 2. There is 1.5 cm cyst evident in the left ovary which is probably dominant follicular cyst. Other cysts in both ovaries are sub cm follicular cysts. 3. No free fluid evident in the adnexal regions and cul-de-sac. DATA REPOSITORY:
== END ==
PROVIDERS: PCP Family Medicine; Visit Provider Obstetrics & Gynecology
DX: N92.0 Excessive and frequent menstruation with regular cycle (principal); N83.02 Follicular cyst of left ovary
CPT/HCPCS: 76830; 76856

== ENCOUNTER 2024-03-18 09:26 | Emergency (ER) | payer OTHER, SELFPAY ==
[2024-03-18 09:32] VITALS: BP 145/100; PULSE 95; RESP 18; TEMP 36.1; O2SAT 98
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
[2024-03-18 10:43] VITALS: BP 140/78; PULSE 80; RESP 16
[2024-03-18 10:55] LABS: Abs Immature Grans 0.02 10^3/uL (0.0-0.06); Absolute Basophil Count 0.02 10^3/uL (0.0-0.2); Absolute Eosinophil Count 0.03 10^3/uL (0.0-0.7); Absolute Lymphocyte Count 1.74 10^3/uL (1.2-3.4); Absolute Monocyte Count 0.36 10^3/uL (0.1-0.8); Absolute Neutrophil Count 4.74 10^3/uL (1.2-6.7); Basophils % 0.3 %; Eosinophils % 0.4 %; HCT 39.5 % (36.0-46.0); HGB 14.1 g/dL (11.2-15.7); Immature Grans % 0.3 %; Lymphocytes % 25.2 %; MCH 28.8 pg (27.0-33.0); MCHC 35.7 % (32.0-36.0); MCV 81 fL (80-95); MPV 9.2 fL (8.0-11.0); Monocytes % 5.2 %; Neutrophils % 68.6 %; Platelet Count 174 10^3/uL (130-400); RDW 11.8 % (11.7-14.6); RDW-SD 34.1 fL; WBC 6.91 10^3/uL (4.4-10.8)
[2024-03-18 12:00] VITALS: BP 138/72; PULSE 68; RESP 16; O2SAT 98
[2024-03-18 13:10] LABS: ALT 26 U/L (14-59); AST 14 U/L (15-37); Albumin 3.5 g/dL (3.4-5.0); Alkaline Phosphatase 77 U/L (46-116); Anion Gap 11.6 mmol/L (3-11); BUN 13 mg/dL (7-18); CO2 22.4 mmol/L (21.0-32.0); CREATININE 0.9 mg/dL (0.55-1.02); Calcium 9.5 mg/dL (8.5-10.1); Chloride 94 mmol/L (98-107); Potassium 4.8 mmol/L (3.5-5.1); Sodium 128 mmol/L (136-145); Total Protein 7.3 g/dL (6.4-8.2)
[2024-03-18 13:20] LABS: Glucose 607 mg/dL (74-106)
[2024-03-18 19:49] LABS: HIV-1/2 Ag & Ab Screen Negative (Negative)
[2024-03-19 13:06] LABS: Chlamydia Result Negative (Negative); GC Result Negative (Negative)
== END 2024-03-18 13:41 | disposition short-term general hospital (02) ==
PROVIDERS: Emergency Provider Physician Assistant; PCP Family Medicine
DX: T74.21XA Adult sexual abuse, confirmed, initial encounter (principal); S20.214A Contusion of middle front wall of thorax, initial encounter; S40.022A Contusion of left upper arm, initial encounter; E11.65 Type 2 diabetes mellitus with hyperglycemia; Z79.84 Long term (current) use of oral hypoglycemic drugs; Y07.59 Other non-family member, perpetrator of maltreatment and neglect; Y99.0 Civilian activity done for income or pay
CPT/HCPCS: 36415; 80053; 81025; 87389; 87491; 87591; 99285; 71046; 71110; 85025

== ENCOUNTER 2024-05-15 23:40 | Emergency (ER) | payer SELFPAY ==
[2024-05-15 23:44] VITALS: BP 133/84; PULSE 127; RESP 18; TEMP 36.2; O2SAT 100
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
[2024-05-16] MEDS: Acetaminophen 500 MG TAB 1000 MG PO (00:36)
[2024-05-16 00:55] LABS: Mono Screening Negative (Negative)
[2024-05-16 01:13] LABS: COVID-19 PCR Negative (Negative); Influenza A PCR Negative (Negative); Influenza B PCR Negative (Negative); RSV PCR Negative (Negative)
[2024-05-16 01:18] VITALS: BP 144/90; PULSE 112; RESP 16; O2SAT 100
[2024-05-16 01:34] LABS: Source Nasopharynx
[2024-05-16 01:48] VITALS: PULSE 104
== END 2024-05-16 02:15 | disposition home or self-care (01) ==
LOC: ER 05-16 02:17
PROVIDERS: Emergency Provider Student in an Organized Health Care Education/Training Program; PCP Family Medicine
DX: J06.9 Acute upper respiratory infection, unspecified (principal); E11.9 Type 2 diabetes mellitus without complications; F41.9 Anxiety disorder, unspecified; F32.A Depression, unspecified; M79.7 Fibromyalgia; F17.210 Nicotine dependence, cigarettes, uncomplicated
CPT/HCPCS: 87637; 99282; 86308; 87081; 99283

== ENCOUNTER 2024-12-31 06:36 | Emergency (ER) | payer MEDICAID, SELFPAY ==
[2024-12-31 06:59] VITALS: BP 149/91; PULSE 122; RESP 16; TEMP 36.5; O2SAT 100
[2024-12-31 07:03] VITALS: BP 149/91; PULSE 122; RESP 16; TEMP 36.5; O2SAT 100
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
[2024-12-31] MEDS: Ibuprofen 800 MG TAB PO (07:36)
[2024-12-31] MEDS: Acetaminophen 500 MG TAB 1000 MG PO (07:37)
== END 2024-12-31 07:43 | disposition home or self-care (01) ==
LOC: ER 07:44
PROVIDERS: Emergency Provider Student in an Organized Health Care Education/Training Program; PCP Family Medicine
DX: K08.89 Other specified disorders of teeth and supporting structures (principal); R68.84 Jaw pain
CPT/HCPCS: 64400; J0665

== ENCOUNTER 2025-01-04 19:42 | Emergency (ER) | payer MEDICAID, SELFPAY ==
[2025-01-04 19:49] VITALS: BP 156/98; PULSE 101; RESP 18; TEMP 36.8; O2SAT 99
[2025-01-04] MEDS: MORPHine IR 15 MG TAB PO (20:11)
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
== END 2025-01-04 23:46 | disposition home or self-care (01) ==
PROVIDERS: Emergency Provider Emergency Medicine; PCP Family Medicine
DX: R68.84 Jaw pain (principal); K08.89 Other specified disorders of teeth and supporting structures
CPT/HCPCS: 99283; 99282

== ENCOUNTER 2025-01-04 21:33 | Emergency (ER) | payer MEDICAID, SELFPAY ==
[2025-01-04 21:37] VITALS: BP 166/102; PULSE 113; RESP 20; O2SAT 100
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
[2025-01-04] MEDS: Benzocaine 20% Gel 30 GM JAR MM (23:03)
== END 2025-01-04 23:46 | disposition home or self-care (01) ==
PROVIDERS: Emergency Provider Emergency Medicine; PCP Family Medicine
DX: R68.84 Jaw pain (principal); K08.89 Other specified disorders of teeth and supporting structures
CPT/HCPCS: 99283 ×2; J1885

== ENCOUNTER 2025-04-21 00:02 | Emergency (ER) | payer MEDICAID, SELFPAY ==
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
[2025-04-21 00:16] VITALS: BP 163/100; PULSE 112; RESP 18; TEMP 36.1; O2SAT 100
[2025-04-21 00:38] LABS: Glucose >=1000 mg/dL (Negative)
[2025-04-21 00:47] LABS: C & S Indicated? Yes; RBC 0-2 HPF (0-2)
[2025-04-21] MEDS: Normal Saline 1,000 ML 1000 ML IV (01:18)
[2025-04-21] MEDS: Ketorolac 15 MG/ML VIAL IVP (01:18)
[2025-04-21] MEDS: cefTRIAXone 1 GM/50 ML BAG IVPB (01:18)
[2025-04-21 01:24] LABS: Abs Immature Grans 0.02 10^3/uL (0.0-0.06); HCT 34.4 % (36.0-46.0); HGB 12.0 g/dL (11.2-15.7); Immature Grans % 0.4 %; MCH 27.8 pg (27.0-33.0); MCHC 34.9 % (32.0-36.0); MCV 80 fL (80-95); MPV 9.1 fL (8.0-11.0); Platelet Count 204 10^3/uL (130-400); RBC 4.31 10^6/uL (3.93-5.22); RDW 12.5 % (11.7-14.6); RDW-SD 35.8 fL; WBC 5.63 10^3/uL (4.4-10.8)
[2025-04-21 01:45] LABS: Anion Gap 6.8 mmol/L (3-11); BUN 14 mg/dL (7-18); CO2 28.2 mmol/L (21.0-32.0); Calcium 9.0 mg/dL (8.5-10.1); Chloride 91 mmol/L (98-107); Estimated GFR 74.88 (mL/min/1.73m2); Potassium 4.1 mmol/L (3.5-5.1); Sodium 126 mmol/L (136-145)
[2025-04-21 01:47] VITALS: BP 152/92; PULSE 100; RESP 16; O2SAT 100
[2025-04-21 01:51] LABS: Glucose 736 mg/dL (74-106)
--- NOTE | 2025-04-23 11:04 | NUR.NOTE ---
Accessed Pt chart to obtain name of antibiotics given to Pt during her visit. Documented on the Specimen Report and gave to the providers.
== END 2025-04-21 02:35 | disposition home or self-care (01) ==
PROVIDERS: Emergency Provider Emergency Medicine; PCP Family Medicine
DX: N12 Tubulo-interstitial nephritis, not specified as acute or chronic (principal); E11.65 Type 2 diabetes mellitus with hyperglycemia
CPT/HCPCS: 36415; 80048; 81025; 87077; 96365; 96375; 99284; 81003; 81015; 83605; 85025; 87086; J0696; J1885

== ENCOUNTER 2025-04-29 04:36 | Emergency (ER) | payer MEDICAID, SELFPAY ==
[2025-04-29 04:40] VITALS: BP 156/104; PULSE 113; RESP 16; TEMP 37.1; O2SAT 100
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
[2025-04-29 05:36] LABS: Glucose >=1000 mg/dL (Negative)
[2025-04-29] MEDS: Normal Saline 1,000 ML 1000 ML IV (05:43)
[2025-04-29] MEDS: Cyclobenzaprine 10 MG TAB PO (05:44)
[2025-04-29] MEDS: Ketorolac 30 MG/ML VIAL IVP (05:44)
[2025-04-29] MEDS: Ondansetron 4 MG/2 ML VIAL IVP (05:44)
[2025-04-29 05:45] LABS: BE (Venous) -4 mmol/L (-2-3); HCO3 (Venous) 22 mmol/L (23-28); O2 Sat (Venous) 48 %; TCO2 (Venous) 20 mmol/L (24-29); pCO2 (Venous) 42 mmHg (41-51); pO2 (Venous) 28 mmHg
[2025-04-29 05:47] LABS: Abs Immature Grans 0.02 10^3/uL (0.0-0.06); HCT 35.2 % (36.0-46.0); HGB 12.3 g/dL (11.2-15.7); Immature Grans % 0.3 %; MCH 27.5 pg (27.0-33.0); MCHC 34.9 % (32.0-36.0); MCV 79 fL (80-95); MPV 9.2 fL (8.0-11.0); Platelet Count 252 10^3/uL (130-400); RBC 4.47 10^6/uL (3.93-5.22); RDW 12.3 % (11.7-14.6); RDW-SD 34.9 fL; WBC 7.77 10^3/uL (4.4-10.8)
[2025-04-29] MEDS: Pregabalin 100 MG CAP 200 MG PO (05:48)
[2025-04-29 05:49] LABS: WBC Negative HPF (0-5)
[2025-04-29 05:50] LABS: C & S Indicated? No
[2025-04-29 06:06] LABS: Lipase 55 U/L (<78)
[2025-04-29 06:12] LABS: ALT 28 U/L (14-59); Albumin 3.6 g/dL (3.4-5.0); Alkaline Phosphatase 90 U/L (46-116); Anion Gap 13.0 mmol/L (3-11); BUN 17 mg/dL (7-18); Bilirubin, Total 0.5 mg/dL (0.2-1.0); CO2 23.0 mmol/L (21.0-32.0); Calcium 8.9 mg/dL (8.5-10.1); Chloride 94 mmol/L (98-107); Estimated GFR 97.87 (mL/min/1.73m2); Glucose 487 mg/dL (74-106); Potassium 3.6 mmol/L (3.5-5.1); Sodium 130 mmol/L (136-145); Total Protein 7.8 g/dL (6.4-8.2)
[2025-04-29 06:30] LABS: COVID-19 PCR Negative (Negative); RSV PCR Negative (Negative)
[2025-04-29 07:04] VITALS: BP 132/75; PULSE 109; RESP 14; TEMP 37.1; O2SAT 99
[2025-04-29 07:11] LABS: AST 37 U/L (15-37)
== END 2025-04-29 07:23 | disposition home or self-care (01) ==
PROVIDERS: Emergency Provider Emergency Medicine Emergency Medical Services; PCP Family Medicine
DX: M79.7 Fibromyalgia (principal); R11.2 Nausea with vomiting, unspecified
CPT/HCPCS: 99284 ×2; 36415; 96374; 96375; 80053; 82805; 83690; 87040; 87637; 96361; 81003; 81015; 83605; 85025; J1885; J2405

== ENCOUNTER 2025-06-12 15:30 | Outpatient (REF) | payer MEDICAID, SELFPAY ==
[2025-06-12 21:24] LABS: TSH (W/Ref FT4) 1.32 uIU/mL (0.55-4.78)
== END 2025-06-12 15:31 | disposition home or self-care (01) ==
LOC: NCHCN 15:30
PROVIDERS: PCP Family Medicine; Visit Provider Family Medicine
DX: R94.6 Abnormal results of thyroid function studies (principal)
CPT/HCPCS: 84443